=== PATIENT | male | born 1945 | race Caucasian/White ===

== ENCOUNTER 2016-03-14 09:52 | Inpatient (IN) | payer MEDICARE, MEDICAID ==
--- NOTE | 2016-03-14 11:11 | ED Physician Chart ---
Chief Complaint/HPI - Patient Information Date Seen:: 03/14/16 Time Seen:: 10:45 Chief Complaint:: sacral decubiti History of Present Illness:: patient has had sacral decubiti for more than two years. Discharged from here 3 weeks ago after 1 1/2 month admission for decubiti and had umbilical hernia repair. Allergies:: Allergies Allergy/AdvReac Type Severity Reaction Status Date / Time chocolate flavor Allergy Unknown Verified 03/14/16 10:19 nitroglycerin Allergy Unknown Verified 03/14/16 10:19 Vitals:: Vital Signs - 8 hr 03/14/16 10:13 Temp 98.1 F HR 88 RR 18 BP 138/85 O2 Sat % 95 Historian:: Patient Review:: Transfer documents Reviewed Review of Systems - Review of Systems General/Constitutional: No fever, No chills, Weakness Skin: Skin lesions Head: No headache Eyes: No loss of vision ENT: No earache Neck: No neck pain Cardio Vascular: No chest pain, No palpitations Pulmonary: No SOB, Cough GI: No nausea, No vomiting G/U: No dysuria Musculoskeletal: No bone or joint pain Endocrine: No polyuria, Polydipsia Psychiatric: No prior psych history Hematopoietic: No bruising Allergic/Immuno: No urticaria Neurological: No syncope, No headache Past Medical History - Past Medical History Past Medical History: CHF, CVA/TIA, PUD/GERD, Other (quadriplegia; anemia) Family History: Heart disease, HTN Social History: Non Smoker, No Alcohol Surgical History: PEG/GTube (hernia; trach), other Psychiatricy History: None Medication: Reviewed Family Medical History - Family Member Mother History Unknown: Yes Ethnicity: Unknown Living Status: Unknown Hx Family Cancer: (UNKNOWN) Hx Family Coronary Artery Disease: (UNKNOWN) Hx Family Congestive Heart Failure: (UNKNOWN) Hx Family Hypertension: (UNKNOWN) Hx Family Stroke: (UNKNOWN) Hx Family Diabetes: (UNKNOWN) Hx Family Seizures: (UNKNOWN) Hx Family Dementia: (UNKNOWN) Hx Family AIDS: (UNKNOWN) Hx Family COPD: (UNKNOWN) Hx Family Hepatitis: (UNKNOWN) Hx Family Psychiatric Problems: (UNKNOWN) Hx Family Tuberculosis: (UNKNOWN) Physical Exam - Physical Examination Other Gen/Cons comments:: chronically ill appearing Head: Atraumatic Eyes: Lids, conjuctiva normal, PERRL Other Skin comments:: stage 4 sacral decubitus ENMT: External ears, nose nl Other ENMT comments:: few teeth present Neck: No bruit Respiratory: Nl effort/Exclusion Other Respiratory comments:: harsh breath sounds Cardio Vascular: RRR, No murmur, gallop, rubs GI: No tenderness/rebounding/guarding, No organomegaly, Normal BS's Other Extremities comments:: quadriplegia; contracture right wrist and right hand Neuro/Psych: Alert/oriented Labs/Radiology/EKG Results - Lab Results Results: Laboratory Results - last 24 hr 03/14/16 03/14/16 11:30 11:30 WBC 13.1 H D RBC 5.35 Hgb 11.8 L D Hct 36.8 L D MCV 68.7 L MCH 22.1 L MCHC Differential 32.2 RDW 19.7 Plt Count 452 H D MPV 7.3 Band Neutrophils % 1 Neutrophils (Manual) 76 Lymphocytes 11 L Monocytes 8 Eosinophils 2 Basophils 2 Platelet Estimate INCREASED PLATELETS Platelet Morphology GIANT PLATELETS SEEN Microcytosis 3+ RBC Morph Micro Appear ABNORMAL Sodium 136 Potassium 3.7 Chloride 102 Carbon Dioxide 26.7 Anion Gap 11.0 BUN 27 H Creatinine 0.5 L Est GFR ( Amer) > 60.0 Est GFR (Non-Af Amer) > 60.0 BUN/Creatinine Ratio 54.0 Glucose 113 H Calcium 9.5 - Radiology Results Results: CXR: cardiomegaly and calcification of aortic arch; no change from 01/14/16 ED Septic Shock - . Is Septic Shock (SBP<90, OR Lactate>4 mmol\L) present?: No - <6hrs of presentation: Vital Signs: Vital Signs - 8 hr 03/14/16 10:13 Temp 98.1 F HR 88 RR 18 BP 138/85 O2 Sat % 95 Reassessment (Disposition) - Reassessment Reassessment Condition:: Unchanged - Diagnosis Diagnosis:: stage 4 sacral decubiti; leukocytosis; cardiomegaly - Patient Disposition Admitted to:: Med/Surg Spoke to:: James Quiroz Admitting Medical Physician:: James Quiroz Condition at Disposition:: Stable, Unchanged
--- NOTE | 2016-03-14 11:24 | Diagnostic Imaging Report ---
Portable chest x-ray HISTORY: Cough The heart is enlarged. Atherosclerotic vascular calcification seen in the aorta. There is pulmonary vascular redistribution consistent with an element of cardiac decompensation. No abby pulmonary edema. Surgical suture material noted over the mid chest. Severe deformity and arthritic changes noted about the left shoulder. IMPRESSION: 1. Cardiomegaly with atherosclerotic vascular changes and findings consistent with a degree of congestive heart failure without abby pulmonary edema. No other focal pulmonary processes 2. Surgical changes 3. Severe deformity and arthritic changes about the left shoulder
[2016-03-14 11:33] LABS: MEAN CORPUSCULAR HEMOGLOBIN 22.1 pg (27.0-31.0); MEAN CORPUSCULAR HGB CONC 32.2 pg (28.0-36.0); MEAN PLATELET VOLUME 7.3 fl; RED BLOOD COUNT 5.35 Mil/cmm (3.80-5.80); RED CELL DISTRIBUTION WIDTH 19.7 % (11.5-20.0)
[2016-03-14 11:35] LABS: HEMATOCRIT 36.8 % (39.0-49.0); HEMOGLOBIN 11.8 gm/dL (12.6-17.4); PLATELET COUNT 452 Th/cmm (150-400); WHITE BLOOD COUNT 13.1 Th/cmm (4.8-10.8)
[2016-03-14 11:54] LABS: BUN - UREA NITROGEN 27 mg/dL (7-25); CALCIUM SERUM 9.5 mg/dL (8.6-10.3); CARBON DIOXIDE 26.7 mEq/L (21.0-31.0); CHLORIDE 102 mEq/L (98-107); CREATININE - SERUM 0.5 mg/dL (0.7-1.3); GLUCOSE 113 mg/dL (70-105); POTASSIUM SERUM 3.7 mEq/L (3.5-5.1); SODIUM SERUM 136 mEq/L (136-145)
[2016-03-14 12:29] LABS: BAND NEUTROPHILE 1 % (0-10); BASOPHIL 2 % (0-3); EOSINOPHIL 2 % (0-5); NEUTROPHILS 76 % (40-80); TOTAL CELLS COUNTED 100
[2016-03-14 12:30] LABS: MICROCYTOSIS 3+; PLATELET ESTIMATE INCREASED PLATELETS (NORMAL); PLATELET MORPHOLOGY GIANT PLATELETS SEEN (NORMAL)
[2016-03-14 12:37] LABS: MEAN CELL VOLUME 68.7 fl (80-99)
[2016-03-14 13:13] LABS: URINE BILIRUBIN NEGATIVE (NEGATIVE); URINE BLOOD MODERATE (NEGATIVE); URINE COLOR YELLOW; URINE GLUCOSE (UA) NEGATIVE (NEGATIVE); URINE KETONE NEGATIVE (NEGATIVE); URINE PH 8.5; URINE PROTEIN 100 mg/dL (NEGATIVE); URINE UROBILINOGEN 0.2 E.U./dL (0.2 - 1.0)
[2016-03-14 13:20] LABS: URINE BACTERIA MANY /hpf (NONE SEEN); URINE EPITHELIAL CELLS RARE /lpf (FEW); URINE WBC 50-100 /hpf (0-5)
[2016-03-14] MEDS ORDERED: HYDROmorphone 2 mg/mL 1mL Vial ONE (13:47)
[2016-03-14] MEDS: HYDROmorphone 2 mg/mL 1mL Vial IVP PRN (13:52)
[2016-03-14] MEDS: Hydrocodone/APAP 10 mg/325 mg Tab PO PRN ×2 (16:31→20:37)
[2016-03-14] MEDS ORDERED: VTE Chemical Prophylaxis Screen/Admission MC PRN (16:45)
--- NOTE | 2016-03-14 21:14 | Admit Criteria Form ---
Admit Criteria Forms - Admit Criteria Diagnosis: WOUND COMPLICATIONS Clinical Indications for Inpatient Care (Place 'X' for any and all applicable criteria): Ongoing inpatient care may be indicated for wound complications with ANY ONE of the following (1) (15): [ ]I. Infection with ANY ONE of the following(32)(33): [ ]a) Temperature greater than 38.5 C (101.3 F) [ ]b) Evidence of tissue necrosis [ ]c) Erythema diameter expanding around wound despite treatment [ ]d) Mental status changes [ ]e) Dehydration [ ]f) Bacteremia [ ]g) Hemodynamic instability [ ]h) Suspected necrotizing fasciitis [ ]i) Rapidly spreading lesions [ ]j) High-risk location (eg, perineum, sternum, orbit) [ ]k) High-risk coexisting clinical condition as indicated by ANY ONE of the following: [ ]i) Poorly controlled diabetes [ ]ii) Cirrhosis [ ]iii) Renal failure [ ]iv) Neutropenia [ ] v) Asplenia [ ]vi) Immunosuppression (eg, AIDS, chronic corticosteroid use) [ ]viii) Other high-risk medical comorbidities [ ] II. Dehiscence requiring frequent monitoring or immediate treatment [ ] III. Hematoma with ANY ONE of the following: [ ]a) Hemodynamic instability or acute anemia due to rapid development of hematoma [ ]b) Neck hematoma causing airway compression [ ]c) Retroperitoneal hematoma [ ]d) Uncontrolled coagulopathy [ ]IV. Seroma with evidence of secondary infection and requirement for IV antibiotics [D](31) [ X]V. Pain that cannot be managed at lower level of care Extended stay beyond goal length of stay for primary condition may be needed until ALL of the following are present(1)(33)(34): [ ]a) Afebrile or fever resolving [ ]b) Hemodynamic stability [ ]c) Pain resolving [ ]d) Wound closed, continuity adequately restored, or wound manageable at lower level of care [ ]e) No drain needed or drain care manageable at lower level of care [ ]f) Wound hematoma or seroma resolving [ ]g) Antibiotics not needed or regimen manageable at lower level of care(38) [ ]h) Dressing care manageable at lower level of care [ ]i) Coagulopathy absent, resolved, or treatable at lower level of care [ ]j) Medical comorbidities resolved or treatable at lower level of care The original [facility] content created by [facility] has been revised. The portions of the content which have been revised are identified through the use of italic text or in bold, and [facility] has neither reviewed nor approved the modified material. All other unmodified content is copyright [facility]. Please see references footnoted in the original [facility] edition 2016 Admit Criteria Met?: Yes
[2016-03-14] MEDS: HYDROmorphone 1 mg/mL 1mL Syr IVP PRN (23:39)
[2016-03-15] MEDS: HYDROmorphone 2 mg/mL 1mL Vial IVP PRN ×4 (01:49→21:48)
[2016-03-15] MEDS: HYDROmorphone 1 mg/mL 1mL Syr IVP PRN ×3 (05:35→14:24)
--- NOTE | 2016-03-15 13:25 | General Progress Note ---
Subjective - Review of Systems Service Date: 03/15/16 Objective - Results Result Diagrams: 03/14/16 11:30 03/14/16 11:30 Recent Labs: Laboratory Last Values WBC 13.1 Th/cmm (4.8-10.8) H D 03/14/16 11:30 RBC 5.35 Mil/cmm (3.80-5.80) 03/14/16 11:30 Hgb 11.8 gm/dL (12.6-17.4) L D 03/14/16 11:30 Hct 36.8 % (39.0-49.0) L D 03/14/16 11:30 MCV 68.7 fl (80-99) L 03/14/16 11:30 MCH 22.1 pg (27.0-31.0) L 03/14/16 11:30 MCHC Differential 32.2 pg (28.0-36.0) 03/14/16 11:30 RDW 19.7 % (11.5-20.0) 03/14/16 11:30 Plt Count 452 Th/cmm (150-400) H D 03/14/16 11:30 MPV 7.3 fl 03/14/16 11:30 Band Neutrophils % 1 % (0-10) 03/14/16 11:30 Neutrophils (Manual) 76 % (40-80) 03/14/16 11:30 Lymphocytes 11 % (20-50) L 03/14/16 11:30 Monocytes 8 % (2-10) 03/14/16 11:30 Eosinophils 2 % (0-5) 03/14/16 11:30 Basophils 2 % (0-3) 03/14/16 11:30 Platelet Estimate INCREASED PLATELETS (NORMAL) 03/14/16 11:30 Platelet Morphology GIANT PLATELETS SEEN (NORMAL) 03/14/16 11:30 Microcytosis 3+ 03/14/16 11:30 RBC Morph Micro Appear ABNORMAL (NORMAL) 03/14/16 11:30 Sodium 136 mEq/L (136-145) 03/14/16 11:30 Potassium 3.7 mEq/L (3.5-5.1) 03/14/16 11:30 Chloride 102 mEq/L (98-107) 03/14/16 11:30 Carbon Dioxide 26.7 mEq/L (21.0-31.0) 03/14/16 11:30 Anion Gap 11.0 (7.0-16.0) 03/14/16 11:30 BUN 27 mg/dL (7-25) H 03/14/16 11:30 Creatinine 0.5 mg/dL (0.7-1.3) L 03/14/16 11:30 Est GFR ( Amer) > 60.0 ml/min 03/14/16 11:30 Est GFR (Non-Af Amer) > 60.0 ml/min 03/14/16 11:30 BUN/Creatinine Ratio 54.0 03/14/16 11:30 Glucose 113 mg/dL (70-105) H 03/14/16 11:30 Calcium 9.5 mg/dL (8.6-10.3) 03/14/16 11:30 Urine Source CATH 03/14/16 10:45 Urine Color YELLOW 03/14/16 10:45 Urine Clarity SL. CLOUDY (CLEAR) 03/14/16 10:45 Urine pH 8.5 03/14/16 10:45 Ur Specific [place] 1.015 (1.005-1.030) 03/14/16 10:45 Urine Protein 100 mg/dL (NEGATIVE) H 03/14/16 10:45 Urine Glucose (UA) NEGATIVE mg/dL (NEGATIVE) 03/14/16 10:45 Urine Ketones NEGATIVE mg/dL (NEGATIVE) 03/14/16 10:45 Urine Blood MODERATE (NEGATIVE) H 03/14/16 10:45 Urine Nitrate NEGATIVE (NEGATIVE) 03/14/16 10:45 Urine Bilirubin NEGATIVE (NEGATIVE) 03/14/16 10:45 Urine Urobilinogen 0.2 E.U./dL (0.2 - 1.0) 03/14/16 10:45 Ur Leukocyte Esterase MODERATE (NEGATIVE) H 03/14/16 10:45 Urine RBC 5-8 /hpf (0-5) 03/14/16 10:45 Urine WBC 50-100 /hpf (0-5) H 03/14/16 10:45 Ur Epithelial Cells RARE /lpf (FEW) 03/14/16 10:45 Urine Bacteria MANY /hpf (NONE SEEN) 03/14/16 10:45 - Physical Exam Vitals and I&O: Vital Signs Temp 98 F 03/15/16 08:00 Pulse 87 03/15/16 08:00 Resp 21 03/15/16 08:00 BP 155/85 03/15/16 08:00 Pulse Ox 92 03/15/16 08:00 Intake & Output 03/14/16 03/15/16 03/15/16 18:59 06:59 18:59 Intake Total 100 Output Total 700 Balance -600 Intake: Oral 100 Output: Urine 700 Other: # Bowel Movements 0 Active Medications: Current Medications Acetaminophen/Hydrocodone Bitart ([place] 10 Mg/325 Mg) 1 tab PO Q4H PRN PRN Reason: mild pain Stop: 05/13/16 15:35 Last Admin: 03/14/16 20:37 Dose: 1 tab Alprazolam (Xanax) 0.25 mg PO BID MARJORIE PRN Reason: Protocol Stop: 05/13/16 21:42 Last Admin: 03/15/16 11:13 Dose: Not Given Heparin Sodium (Porcine) (Heparin) 5,000 units SUBQ Q12HR MARJORIE Stop: 05/13/16 20:59 Last Admin: 03/15/16 11:13 Dose: Not Given Hydromorphone HCl (Dilaudid) 2 mg IVP Q4HR PRN PRN Reason: Wound Management Stop: 05/13/16 13:36 Last Admin: 03/15/16 12:55 Dose: 2 mg Hydromorphone HCl (Dilaudid) 1 mg IVP Q4HR PRN PRN Reason: moderate pain Stop: 05/13/16 15:32 Last Admin: 03/15/16 09:48 Dose: 1 mg Hydromorphone HCl (Dilaudid) 2 mg IVP Q4HR PRN PRN Reason: Severe Pain Stop: 05/13/16 15:33 Lorazepam (Ativan) 1 mg PO Q6HR PRN; Protocol PRN Reason: Anxiety Stop: 05/13/16 21:43 Miscellaneous (Vte Chemical Prophylaxis Screen/ Admission) 1 ea [facility] PRN PRN PRN Reason: PROTOCOL Stop: 05/13/16 16:44 General: Alert, Oriented x3 Neck: Supple Cardiovascular: Regular rate Lungs: Clear to auscultation Abdomen: Bowel sounds Psych/Mental Status: Mental status NL (sacral decubiti) - Procedures Procedures: Procedures Procedure Code Date BYPASS DESCENDING COLON TO CUTANEOUS, OPEN APPROACH [id number] 01/12/16 COLOSTOMY 93125 01/12/16 SRINATH SUBQ TISSUE 20 SQ CM/< 75247 01/12/16 EXCISION OF LEFT PELVIC BONE, OPEN APPROACH [id number] 01/12/16 EXCISION OF SACRUM, OPEN APPROACH [id number] 01/12/16 PRP I/BECCA INIT REDUC >5 YR 36876 01/12/16 REPAIR BILATERAL INGUINAL REGION, OPEN APPROACH [id number] 01/12/16 Assessment/Plan - Problem List Patient Problems: All Active Problems Anemia (Acute) D64.9 Cardiomegaly (Acute) I51.7 Constipation (Acute) K59.00 H/O: CVA (cerebrovascular accident) (Acute) Z86.73 History of CHF (congestive heart failure) (Acute) Z86.79 Non-healing sacral decubitus ulcer stage (Acute) PUD (peptic ulcer disease) (Acute) K27.9 UTI (urinary tract infection) (Acute) h/o coronary artery disease (Acute) - Plan Plan: vascular/surgical /id consult
[2016-03-15] MEDS: guaiFENesin 200 MG/10 ML UDC PO PRN (16:59)
[2016-03-15] MEDS: Hydrocodone/APAP 10 mg/325 mg Tab PO PRN (23:09)
[2016-03-16] MEDS: HYDROmorphone 1 mg/mL 1mL Syr IVP PRN ×3 (00:14→13:36)
[2016-03-16] MEDS: HYDROmorphone 2 mg/mL 1mL Vial IVP PRN ×4 (04:32→22:55)
[2016-03-16] MEDS: guaiFENesin 200 MG/10 ML UDC PO PRN ×2 (07:15→15:43)
[2016-03-16] MEDS: Venelex 60gm Tube TP SCH (09:38)
--- NOTE | 2016-03-16 10:31 | General Progress Note ---
Subjective - Review of Systems Service Date: 03/16/16 Subjective: c/o pain low back Objective - Results Result Diagrams: 03/14/16 11:30 03/14/16 11:30 Recent Labs: Laboratory Last Values WBC 13.1 Th/cmm (4.8-10.8) H D 03/14/16 11:30 RBC 5.35 Mil/cmm (3.80-5.80) 03/14/16 11:30 Hgb 11.8 gm/dL (12.6-17.4) L D 03/14/16 11:30 Hct 36.8 % (39.0-49.0) L D 03/14/16 11:30 MCV 68.7 fl (80-99) L 03/14/16 11:30 MCH 22.1 pg (27.0-31.0) L 03/14/16 11:30 MCHC Differential 32.2 pg (28.0-36.0) 03/14/16 11:30 RDW 19.7 % (11.5-20.0) 03/14/16 11:30 Plt Count 452 Th/cmm (150-400) H D 03/14/16 11:30 MPV 7.3 fl 03/14/16 11:30 Band Neutrophils % 1 % (0-10) 03/14/16 11:30 Neutrophils (Manual) 76 % (40-80) 03/14/16 11:30 Lymphocytes 11 % (20-50) L 03/14/16 11:30 Monocytes 8 % (2-10) 03/14/16 11:30 Eosinophils 2 % (0-5) 03/14/16 11:30 Basophils 2 % (0-3) 03/14/16 11:30 Platelet Estimate INCREASED PLATELETS (NORMAL) 03/14/16 11:30 Platelet Morphology GIANT PLATELETS SEEN (NORMAL) 03/14/16 11:30 Microcytosis 3+ 03/14/16 11:30 RBC Morph Micro Appear ABNORMAL (NORMAL) 03/14/16 11:30 Sodium 136 mEq/L (136-145) 03/14/16 11:30 Potassium 3.7 mEq/L (3.5-5.1) 03/14/16 11:30 Chloride 102 mEq/L (98-107) 03/14/16 11:30 Carbon Dioxide 26.7 mEq/L (21.0-31.0) 03/14/16 11:30 Anion Gap 11.0 (7.0-16.0) 03/14/16 11:30 BUN 27 mg/dL (7-25) H 03/14/16 11:30 Creatinine 0.5 mg/dL (0.7-1.3) L 03/14/16 11:30 Est GFR ( Amer) > 60.0 ml/min 03/14/16 11:30 Est GFR (Non-Af Amer) > 60.0 ml/min 03/14/16 11:30 BUN/Creatinine Ratio 54.0 03/14/16 11:30 Glucose 113 mg/dL (70-105) H 03/14/16 11:30 Calcium 9.5 mg/dL (8.6-10.3) 03/14/16 11:30 Urine Source CATH 03/14/16 10:45 Urine Color YELLOW 03/14/16 10:45 Urine Clarity SL. CLOUDY (CLEAR) 03/14/16 10:45 Urine pH 8.5 03/14/16 10:45 Ur Specific [place] 1.015 (1.005-1.030) 03/14/16 10:45 Urine Protein 100 mg/dL (NEGATIVE) H 03/14/16 10:45 Urine Glucose (UA) NEGATIVE mg/dL (NEGATIVE) 03/14/16 10:45 Urine Ketones NEGATIVE mg/dL (NEGATIVE) 03/14/16 10:45 Urine Blood MODERATE (NEGATIVE) H 03/14/16 10:45 Urine Nitrate NEGATIVE (NEGATIVE) 03/14/16 10:45 Urine Bilirubin NEGATIVE (NEGATIVE) 03/14/16 10:45 Urine Urobilinogen 0.2 E.U./dL (0.2 - 1.0) 03/14/16 10:45 Ur Leukocyte Esterase MODERATE (NEGATIVE) H 03/14/16 10:45 Urine RBC 5-8 /hpf (0-5) 03/14/16 10:45 Urine WBC 50-100 /hpf (0-5) H 03/14/16 10:45 Ur Epithelial Cells RARE /lpf (FEW) 03/14/16 10:45 Urine Bacteria MANY /hpf (NONE SEEN) 03/14/16 10:45 - Physical Exam Vitals and I&O: Vital Signs Temp 20 F 03/16/16 00:00 Pulse 96 03/16/16 00:00 Resp 20 03/16/16 00:00 BP 147/87 03/16/16 00:00 Pulse Ox 86 03/16/16 00:00 Intake & Output 03/15/16 03/16/16 03/16/16 18:59 06:59 18:59 Intake Total 450 200 Output Total 1600 Balance -1150 200 Intake: Oral 450 200 Output: Urine 1600 Other: # Voids 4 3 # Bowel Movements 1 Active Medications: Current Medications Acetaminophen/Hydrocodone Bitart ([place] 10 Mg/325 Mg) 1 tab PO Q4H PRN PRN Reason: mild pain Stop: 05/13/16 15:35 Last Admin: 03/15/16 23:09 Dose: 1 tab Alprazolam (Xanax) 0.25 mg PO BID MARJORIE PRN Reason: Protocol Stop: 05/13/16 21:42 Last Admin: 03/16/16 09:31 Dose: 0.25 mg Guaifenesin (Robitussin) 200 mg PO Q4HR PRN PRN Reason: Cough or Congestion Stop: 05/14/16 16:35 Last Admin: 03/16/16 07:15 Dose: 200 mg Heparin Sodium (Porcine) (Heparin) 5,000 units SUBQ Q12HR MARJORIE Stop: 05/13/16 20:59 Last Admin: 03/16/16 09:30 Dose: 5,000 units Hydromorphone HCl (Dilaudid) 2 mg IVP Q4HR PRN PRN Reason: Wound Management Stop: 05/13/16 13:36 Last Admin: 03/16/16 04:32 Dose: 2 mg Hydromorphone HCl (Dilaudid) 1 mg IVP Q4HR PRN PRN Reason: moderate pain Stop: 05/13/16 15:32 Last Admin: 03/16/16 09:31 Dose: 1 mg Hydromorphone HCl (Dilaudid) 2 mg IVP Q4HR PRN PRN Reason: Severe Pain Stop: 05/13/16 15:33 Lorazepam (Ativan) 1 mg PO Q6HR PRN; Protocol PRN Reason: Anxiety Stop: 05/13/16 21:43 Miscellaneous (Vte Chemical Prophylaxis Screen/ Admission) 1 ea [facility] PRN PRN PRN Reason: PROTOCOL Stop: 05/13/16 16:44 General: Moderate distress Neck: Supple Cardiovascular: Regular rate Lungs: Clear to auscultation Abdomen: Bowel sounds Psych/Mental Status: Mental status NL - Procedures Procedures: Procedures Procedure Code Date BYPASS DESCENDING COLON TO CUTANEOUS, OPEN APPROACH [id number] 01/12/16 COLOSTOMY 98459 01/12/16 SRINATH SUBQ TISSUE 20 SQ CM/< 74965 01/12/16 EXCISION OF LEFT PELVIC BONE, OPEN APPROACH [id number] 01/12/16 EXCISION OF SACRUM, OPEN APPROACH [id number] 01/12/16 PRP I/BECCA INIT REDUC >5 YR 95862 01/12/16 REPAIR BILATERAL INGUINAL REGION, OPEN APPROACH [id number] 01/12/16 Assessment/Plan - Problem List Patient Problems: All Active Problems Anemia (Acute) D64.9 Cardiomegaly (Acute) I51.7 Constipation (Acute) K59.00 H/O: CVA (cerebrovascular accident) (Acute) Z86.73 History of CHF (congestive heart failure) (Acute) Z86.79 Non-healing sacral decubitus ulcer stage (Acute) PUD (peptic ulcer disease) (Acute) K27.9 UTI (urinary tract infection) (Acute) h/o coronary artery disease (Acute) - Plan Plan: /dr akosua wright id consult
[2016-03-16] MEDS: Hydrocodone/APAP 10 mg/325 mg Tab PO PRN (10:50)
[2016-03-16] MEDS: Albuterol/Ipratropium Neb 3 ML AERS HHN PRN (22:19)
[2016-03-17] MEDS: Hydrocodone/APAP 10 mg/325 mg Tab PO PRN ×3 (00:31→20:57)
[2016-03-17] MEDS: HYDROmorphone 1 mg/mL 1mL Syr IVP PRN ×3 (03:13→13:54)
[2016-03-17] MEDS: Albuterol/Ipratropium Neb 3 ML AERS HHN PRN ×3 (03:37→22:02)
[2016-03-17] MEDS: HYDROmorphone 2 mg/mL 1mL Vial IVP PRN ×2 (11:01→21:57)
--- NOTE | 2016-03-17 12:04 | General Progress Note ---
Subjective - Review of Systems Service Date: 03/17/16 Subjective: c/o severe pain Objective - Results Result Diagrams: 03/14/16 11:30 03/14/16 11:30 Recent Labs: Laboratory Last Values WBC 13.1 Th/cmm (4.8-10.8) H D 03/14/16 11:30 RBC 5.35 Mil/cmm (3.80-5.80) 03/14/16 11:30 Hgb 11.8 gm/dL (12.6-17.4) L D 03/14/16 11:30 Hct 36.8 % (39.0-49.0) L D 03/14/16 11:30 MCV 68.7 fl (80-99) L 03/14/16 11:30 MCH 22.1 pg (27.0-31.0) L 03/14/16 11:30 MCHC Differential 32.2 pg (28.0-36.0) 03/14/16 11:30 RDW 19.7 % (11.5-20.0) 03/14/16 11:30 Plt Count 452 Th/cmm (150-400) H D 03/14/16 11:30 MPV 7.3 fl 03/14/16 11:30 Band Neutrophils % 1 % (0-10) 03/14/16 11:30 Neutrophils (Manual) 76 % (40-80) 03/14/16 11:30 Lymphocytes 11 % (20-50) L 03/14/16 11:30 Monocytes 8 % (2-10) 03/14/16 11:30 Eosinophils 2 % (0-5) 03/14/16 11:30 Basophils 2 % (0-3) 03/14/16 11:30 Platelet Estimate INCREASED PLATELETS (NORMAL) 03/14/16 11:30 Platelet Morphology GIANT PLATELETS SEEN (NORMAL) 03/14/16 11:30 Microcytosis 3+ 03/14/16 11:30 RBC Morph Micro Appear ABNORMAL (NORMAL) 03/14/16 11:30 Sodium 136 mEq/L (136-145) 03/14/16 11:30 Potassium 3.7 mEq/L (3.5-5.1) 03/14/16 11:30 Chloride 102 mEq/L (98-107) 03/14/16 11:30 Carbon Dioxide 26.7 mEq/L (21.0-31.0) 03/14/16 11:30 Anion Gap 11.0 (7.0-16.0) 03/14/16 11:30 BUN 27 mg/dL (7-25) H 03/14/16 11:30 Creatinine 0.5 mg/dL (0.7-1.3) L 03/14/16 11:30 Est GFR ( Amer) > 60.0 ml/min 03/14/16 11:30 Est GFR (Non-Af Amer) > 60.0 ml/min 03/14/16 11:30 BUN/Creatinine Ratio 54.0 03/14/16 11:30 Glucose 113 mg/dL (70-105) H 03/14/16 11:30 Calcium 9.5 mg/dL (8.6-10.3) 03/14/16 11:30 Urine Source CATH 03/14/16 10:45 Urine Color YELLOW 03/14/16 10:45 Urine Clarity SL. CLOUDY (CLEAR) 03/14/16 10:45 Urine pH 8.5 03/14/16 10:45 Ur Specific [place] 1.015 (1.005-1.030) 03/14/16 10:45 Urine Protein 100 mg/dL (NEGATIVE) H 03/14/16 10:45 Urine Glucose (UA) NEGATIVE mg/dL (NEGATIVE) 03/14/16 10:45 Urine Ketones NEGATIVE mg/dL (NEGATIVE) 03/14/16 10:45 Urine Blood MODERATE (NEGATIVE) H 03/14/16 10:45 Urine Nitrate NEGATIVE (NEGATIVE) 03/14/16 10:45 Urine Bilirubin NEGATIVE (NEGATIVE) 03/14/16 10:45 Urine Urobilinogen 0.2 E.U./dL (0.2 - 1.0) 03/14/16 10:45 Ur Leukocyte Esterase MODERATE (NEGATIVE) H 03/14/16 10:45 Urine RBC 5-8 /hpf (0-5) 03/14/16 10:45 Urine WBC 50-100 /hpf (0-5) H 03/14/16 10:45 Ur Epithelial Cells RARE /lpf (FEW) 03/14/16 10:45 Urine Bacteria MANY /hpf (NONE SEEN) 03/14/16 10:45 - Physical Exam Vitals and I&O: Vital Signs Temp 98.5 F 03/16/16 11:53 Pulse 87 03/17/16 08:00 Resp 20 03/17/16 08:00 BP 166/96 03/17/16 08:00 Pulse Ox 95 03/17/16 08:00 Intake & Output 03/16/16 03/17/16 03/17/16 18:59 06:59 18:59 Intake Total 1000 Output Total 1175 Balance -175 Intake: Oral 1000 Output: Urine 875 Stool 300 Other: Stool Characteristics Soft Soft Formed Brown Active Medications: Current Medications Acetaminophen/Hydrocodone Bitart ([place] 10 Mg/325 Mg) 1 tab PO Q4H PRN PRN Reason: mild pain Stop: 05/13/16 15:35 Last Admin: 03/17/16 00:31 Dose: 1 tab Albuterol/Ipratropium (Duoneb Neb) 3 ml HHN Q4HR PRN PRN Reason: Shortness of Breath or Wheeze Stop: 05/15/16 22:04 Last Admin: 03/17/16 06:49 Dose: 3 ml Alprazolam (Xanax) 0.25 mg PO BID MARJORIE PRN Reason: Protocol Stop: 05/13/16 21:42 Last Admin: 03/17/16 08:40 Dose: 0.25 mg Guaifenesin (Robitussin) 200 mg PO Q4HR PRN PRN Reason: Cough or Congestion Stop: 05/14/16 16:35 Last Admin: 03/16/16 15:43 Dose: 200 mg Heparin Sodium (Porcine) (Heparin) 5,000 units SUBQ Q12HR MARJORIE Stop: 05/13/16 20:59 Last Admin: 03/17/16 08:40 Dose: 5,000 units Hydromorphone HCl (Dilaudid) 2 mg IVP Q4HR PRN PRN Reason: Wound Management Stop: 05/13/16 13:36 Last Admin: 03/16/16 22:55 Dose: 2 mg Hydromorphone HCl (Dilaudid) 1 mg IVP Q4HR PRN PRN Reason: moderate pain Stop: 05/13/16 15:32 Last Admin: 03/17/16 08:42 Dose: 1 mg Hydromorphone HCl (Dilaudid) 2 mg IVP Q4HR PRN PRN Reason: Severe Pain Stop: 05/13/16 15:33 Last Admin: 03/17/16 11:01 Dose: 2 mg Lorazepam (Ativan) 1 mg PO Q6HR PRN; Protocol PRN Reason: Anxiety Stop: 05/13/16 21:43 Last Admin: 03/16/16 20:23 Dose: 1 mg Miscellaneous (Vte Chemical Prophylaxis Screen/ Admission) 1 ea [facility] PRN PRN PRN Reason: PROTOCOL Stop: 05/13/16 16:44 General: Oriented x3, Moderate distress Neck: Supple Cardiovascular: Regular rate, Normal S1, Normal S2 Lungs: Clear to auscultation, Normal air movement Psych/Mental Status: Mental status NL (osbaldo leg ulcers and wound vac) - Procedures Procedures: Procedures Procedure Code Date BYPASS DESCENDING COLON TO CUTANEOUS, OPEN APPROACH [id number] 01/12/16 COLOSTOMY 62175 01/12/16 SRINATH SUBQ TISSUE 20 SQ CM/< 93462 01/12/16 EXCISION OF LEFT PELVIC BONE, OPEN APPROACH [id number] 01/12/16 EXCISION OF SACRUM, OPEN APPROACH [id number] 01/12/16 PRP I/BECCA INIT REDUC >5 YR 71433 01/12/16 REPAIR BILATERAL INGUINAL REGION, OPEN APPROACH [id number] 01/12/16 Assessment/Plan - Problem List Patient Problems: All Active Problems Anemia (Acute) D64.9 Cardiomegaly (Acute) I51.7 Constipation (Acute) K59.00 H/O: CVA (cerebrovascular accident) (Acute) Z86.73 History of CHF (congestive heart failure) (Acute) Z86.79 Non-healing sacral decubitus ulcer stage (Acute) PUD (peptic ulcer disease) (Acute) K27.9 UTI (urinary tract infection) (Acute) h/o coronary artery disease (Acute) - Plan Plan: aj garcia
[2016-03-17] MEDS ORDERED: Maalox 30 mL Cup PO PRN (12:47)
[2016-03-17] MEDS ORDERED: Fleet Enema 135 mL RC PRN (12:47)
[2016-03-17] MEDS ORDERED: Polyvinyl Alcohol Ophth Soln 15 mL Bottle EACH EYE PRN (12:47)
[2016-03-17] MEDS ORDERED: MORPHINE 30 MG PO PRN (12:47)
[2016-03-17] MEDS ORDERED: Hydrocodone/APAP 10 mg/325 mg Tab PO PRN (12:47)
[2016-03-17] MEDS ORDERED: Lactulose 10 Gm/15 mL 30mL UDC PO PRN (12:47)
[2016-03-17] MEDS ORDERED: Non-Formulary Item 1 EA (Apixaban [Eliquis] 5 MG) PO SCH (13:00)
[2016-03-17] MEDS ORDERED: POLYETHYLENE GLYCOL 17 GM PO SCH (13:00)
[2016-03-17] MEDS ORDERED: [UNRECOGNIZED DRUG - OTHER] IV SCH (13:00)
[2016-03-17] MEDS ORDERED: VANCOMYCIN HCL IV SCH (13:00)
[2016-03-17] MEDS ORDERED: METRONIDAZOLE IV SCH (13:00)
[2016-03-17] MEDS ORDERED: POLYETHYLENE GLYCOL 3350 17 GM PACK PO ONE (17:00)
[2016-03-17] MEDS ORDERED: Non-Formulary Item 1 EA (Carvedilol [Coreg] 25 MG) PO SCH (17:00)
[2016-03-17] MEDS: Venelex 60gm Tube TP SCH (17:30)
[2016-03-17] MEDS: metroNIDAZOLE 500mg/NS 100mL 500 MG/100 ML BAG IV SCH (21:57)
[2016-03-18] MEDS: Hydrocodone/APAP 10 mg/325 mg Tab PO PRN (01:04)
[2016-03-18] MEDS: metroNIDAZOLE 500mg/NS 100mL 500 MG/100 ML BAG IV SCH (04:25)
[2016-03-18] MEDS: HYDROmorphone 2 mg/mL 1mL Vial IVP PRN ×3 (04:25→22:51)
[2016-03-18 07:29] LABS: HEMATOCRIT 34.7 % (39.0-49.0); HEMOGLOBIN 10.9 gm/dL (12.6-17.4); MEAN CELL VOLUME 69.6 fl (80-99); MEAN CORPUSCULAR HGB CONC 31.6 pg (28.0-36.0); MEAN PLATELET VOLUME 7.2 fl; PLATELET COUNT 484 Th/cmm (150-400); RED BLOOD COUNT 4.98 Mil/cmm (3.80-5.80); WHITE BLOOD COUNT 11.3 Th/cmm (4.8-10.8)
[2016-03-18 07:36] LABS: INR 1.16 (0.5-1.4); PROTHROMBIN TIME (TEST) 11.6 SECONDS (9.5-11.5)
[2016-03-18 07:43] LABS: ANION GAP 11.8 (7.0-16.0); BUN - UREA NITROGEN 31 mg/dL (7-25); BUN/CREATININE RATIO 77.5; CALCIUM SERUM 9.7 mg/dL (8.6-10.3); CARBON DIOXIDE 25.9 mEq/L (21.0-31.0); CHLORIDE 107 mEq/L (98-107); CREATININE - SERUM 0.4 mg/dL (0.7-1.3); GLUCOSE 134 mg/dL (70-105); POTASSIUM SERUM 3.7 mEq/L (3.5-5.1); SODIUM SERUM 141 mEq/L (136-145)
--- NOTE | 2016-03-18 07:58 | General Progress Note ---
Subjective - Review of Systems Subjective: c/o pain low back Objective - Results Result Diagrams: 03/18/16 06:25 03/18/16 06:25 Recent Labs: Laboratory Last Values WBC 11.3 Th/cmm (4.8-10.8) H 03/18/16 06:25 RBC 4.98 Mil/cmm (3.80-5.80) 03/18/16 06:25 Hgb 10.9 gm/dL (12.6-17.4) L 03/18/16 06:25 Hct 34.7 % (39.0-49.0) L 03/18/16 06:25 MCV 69.6 fl (80-99) L 03/18/16 06:25 MCH 22.0 pg (27.0-31.0) L 03/18/16 06:25 MCHC Differential 31.6 pg (28.0-36.0) 03/18/16 06:25 RDW 20.0 % (11.5-20.0) 03/18/16 06:25 Plt Count 484 Th/cmm (150-400) H 03/18/16 06:25 MPV 7.2 fl 03/18/16 06:25 Band Neutrophils % 1 % (0-10) 03/14/16 11:30 Neutrophils (Manual) 76 % (40-80) 03/14/16 11:30 Lymphocytes 11 % (20-50) L 03/14/16 11:30 Monocytes 8 % (2-10) 03/14/16 11:30 Eosinophils 2 % (0-5) 03/14/16 11:30 Basophils 2 % (0-3) 03/14/16 11:30 Platelet Estimate INCREASED PLATELETS (NORMAL) 03/14/16 11:30 Platelet Morphology GIANT PLATELETS SEEN (NORMAL) 03/14/16 11:30 Microcytosis 3+ 03/14/16 11:30 RBC Morph Micro Appear ABNORMAL (NORMAL) 03/14/16 11:30 Sodium 141 mEq/L (136-145) 03/18/16 06:25 Potassium 3.7 mEq/L (3.5-5.1) 03/18/16 06:25 Chloride 107 mEq/L (98-107) 03/18/16 06:25 Carbon Dioxide 25.9 mEq/L (21.0-31.0) 03/18/16 06:25 Anion Gap 11.8 (7.0-16.0) 03/18/16 06:25 BUN 31 mg/dL (7-25) H 03/18/16 06:25 Creatinine 0.4 mg/dL (0.7-1.3) L 03/18/16 06:25 Est GFR ( Amer) > 60.0 ml/min 03/18/16 06:25 Est GFR (Non-Af Amer) > 60.0 ml/min 03/18/16 06:25 BUN/Creatinine Ratio 77.5 03/18/16 06:25 Glucose 134 mg/dL (70-105) H 03/18/16 06:25 Calcium 9.7 mg/dL (8.6-10.3) 03/18/16 06:25 Urine Source CATH 03/14/16 10:45 Urine Color YELLOW 03/14/16 10:45 Urine Clarity SL. CLOUDY (CLEAR) 03/14/16 10:45 Urine pH 8.5 03/14/16 10:45 Ur Specific [place] 1.015 (1.005-1.030) 03/14/16 10:45 Urine Protein 100 mg/dL (NEGATIVE) H 03/14/16 10:45 Urine Glucose (UA) NEGATIVE mg/dL (NEGATIVE) 03/14/16 10:45 Urine Ketones NEGATIVE mg/dL (NEGATIVE) 03/14/16 10:45 Urine Blood MODERATE (NEGATIVE) H 03/14/16 10:45 Urine Nitrate NEGATIVE (NEGATIVE) 03/14/16 10:45 Urine Bilirubin NEGATIVE (NEGATIVE) 03/14/16 10:45 Urine Urobilinogen 0.2 E.U./dL (0.2 - 1.0) 03/14/16 10:45 Ur Leukocyte Esterase MODERATE (NEGATIVE) H 03/14/16 10:45 Urine RBC 5-8 /hpf (0-5) 03/14/16 10:45 Urine WBC 50-100 /hpf (0-5) H 03/14/16 10:45 Ur Epithelial Cells RARE /lpf (FEW) 03/14/16 10:45 Urine Bacteria MANY /hpf (NONE SEEN) 03/14/16 10:45 - Physical Exam Vitals and I&O: Vital Signs Temp 96.2 F 03/17/16 20:00 Pulse 73 03/18/16 01:04 Resp 18 03/17/16 22:12 BP 145/88 03/17/16 20:00 Pulse Ox 94 03/17/16 22:12 Intake & Output 03/17/16 03/18/16 03/18/16 18:59 06:59 18:59 Intake Total 300 100 Output Total 100 Balance 200 100 Intake: Intake, IV Amount 300 100 Vancomycin HCl 0.75 gm In 250 Sodium Chloride 0.9% 250 ml @ 165 mls/hr IV Q12HR @0300,1500 [facility] Rx#: [id number] cefTRIAXone 1 gm In 50 Dextrose 5% 50 ml @ 100 mls/hr IV Q24H [facility] Rx#: [id number] metroNIDAZOLE 500mg/NS 100 100mL 500 mg In 100 ml @ 100 mls/hr IV Q8HR [facility] Rx #:[id number] Output: Urine 100 Other: # Bowel Movements 1 Stool Characteristics Soft Formed Brown Active Medications: Current Medications Acetaminophen (Tylenol) 650 mg PO Q6HR PRN PRN Reason: Mild Pain or Fever >101 Stop: 05/16/16 12:46 Acetaminophen/Hydrocodone Bitart ([place] 10 Mg/325 Mg) 1 tab PO Q4H PRN PRN Reason: mild pain Stop: 05/13/16 15:35 Last Admin: 03/18/16 01:04 Dose: 1 tab Acetaminophen/Hydrocodone Bitart ([place] 10 Mg/325 Mg) 1 tab PO DAILY PRN PRN Reason: Pain (Moderate) Stop: 05/16/16 12:46 Al Hydrox/Mg Hydrox/Simethicone (Maalox) 20 ml PO DAILY PRN PRN Reason: GI DISTRESS Stop: 05/16/16 12:46 Albuterol/Ipratropium (Duoneb Neb) 3 ml HHN Q4HR PRN PRN Reason: Shortness of Breath or Wheeze Stop: 05/15/16 22:04 Last Admin: 03/17/16 22:02 Dose: 3 ml Alprazolam (Xanax) 0.25 mg PO BID MARJORIE PRN Reason: Protocol Stop: 05/13/16 21:42 Last Admin: 03/17/16 16:15 Dose: 0.25 mg Alprazolam (Xanax) 0.25 mg PO Q24HR PRN; Protocol PRN Reason: Anxiety Stop: 05/16/16 12:46 Amiodarone HCl (Cordarone) 200 mg PO DAILY [facility] Stop: 05/17/16 08:59 Amlodipine Besylate (Norvasc) 5 mg PO DAILY [facility] Stop: 05/17/16 08:59 Artificial Tears (Artificial Tears Ophth Soln) 1 drop EACH EYE BID PRN PRN Reason: DRY EYES Stop: 05/16/16 12:46 Ascorbic Acid (Vitamin C) 500 mg PO BID [facility] Stop: 05/16/16 16:59 Last Admin: 03/17/16 16:14 Dose: 500 mg Carvedilol (Coreg) 25 mg PO BID [facility] Stop: 05/16/16 16:59 Last Admin: 03/17/16 16:14 Dose: 25 mg Clonidine HCl (Catapres) 0.1 mg PO Q8HR PRN PRN Reason: IN SBP>150 Stop: 05/16/16 12:46 Last Admin: 03/18/16 01:04 Dose: 0.1 mg Diphenhydramine HCl (Benadryl) 25 mg PO Q8HR PRN PRN Reason: Itching Stop: 05/16/16 12:46 Docusate Sodium (Colace) 100 mg PO BID [facility] Stop: 05/16/16 16:59 Last Admin: 03/17/16 16:14 Dose: Not Given Doxazosin Mesylate (Cardura) 8 mg PO DAILY [facility] Stop: 05/17/16 08:59 Furosemide (Lasix) 40 mg IVP DAILY [facility] Stop: 05/17/16 08:59 Guaifenesin (Robitussin) 200 mg PO Q4HR PRN PRN Reason: Cough or Congestion Stop: 05/14/16 16:35 Last Admin: 03/16/16 15:43 Dose: 200 mg Heparin Sodium (Porcine) (Heparin) 5,000 units SUBQ Q12HR MARJORIE Stop: 05/13/16 20:59 Last Admin: 03/17/16 21:58 Dose: 5,000 units Hydromorphone HCl (Dilaudid) 2 mg IVP Q4HR PRN PRN Reason: Wound Management Stop: 05/13/16 13:36 Last Admin: 03/18/16 04:25 Dose: 2 mg Hydromorphone HCl (Dilaudid) 1 mg IVP Q4HR PRN PRN Reason: moderate pain Stop: 05/13/16 15:32 Last Admin: 03/17/16 13:54 Dose: 1 mg Hydromorphone HCl (Dilaudid) 2 mg IVP Q4HR PRN PRN Reason: Severe Pain Stop: 05/13/16 15:33 Last Admin: 03/17/16 11:01 Dose: 2 mg Ceftriaxone Sodium 1 gm/ (Dextrose) 50 mls @ 100 mls/hr IV Q24H MARJORIE Stop: 05/16/16 13:59 Last Infusion: 03/17/16 16:08 Dose: Infused Metronidazole (Flagyl) 500 mg in 100 mls @ 100 mls/hr IV Q8HR [facility]IE Stop: 05/16/16 20:59 Last Admin: 03/18/16 04:25 Dose: 100 mls/hr Daptomycin 320 mg/ Sodium (Chloride) 100 mls @ 100 mls/hr IV Q24H [facility] Stop: 05/17/16 08:59 Lactulose (Cephulac) 20 gm PO Q24HR PRN PRN Reason: Constipation Stop: 05/16/16 12:46 Levofloxacin (Levaquin) 250 mg PO DAILY [facility] Stop: 05/17/16 08:59 Lorazepam (Ativan) 1 mg PO Q6HR PRN; Protocol PRN Reason: Anxiety Stop: 05/13/16 21:43 Last Admin: 03/18/16 00:21 Dose: 1 mg Losartan Potassium (Cozaar) 50 mg PO DAILY [facility] Stop: 05/17/16 08:59 Miconazole Nitrate (Micatin 2%) appl TP BID [facility] Stop: 05/16/16 16:59 Miscellaneous (Vte Chemical Prophylaxis Screen/ Admission) 1 ea MC PRN PRN PRN Reason: PROTOCOL Stop: 05/13/16 16:44 Miscellaneous (Apixaban [Eliquis]) 5 mg PO Q2HR [facility] Stop: 05/16/16 12:59 Morphine Sulfate (Ms-Contin) 30 mg PO BID PRN PRN Reason: Pain (Severe) Stop: 05/16/16 13:31 Ondansetron HCl (Zofran Odt) 4 mg PO Q6HR PRN PRN Reason: Vomiting Stop: 05/16/16 12:46 Pantoprazole Sodium (Protonix) 40 mg PO QDAC [facility]JORIE Stop: 05/17/16 06:29 Potassium Chloride (Klor-Con) 20 meq PO DAILY [facility] Stop: 05/17/16 08:59 Sodium Phosphate (Fleet Enema) 133 ml RC DAILY PRN PRN Reason: Constipation Stop: 05/16/16 12:46 Zinc Sulfate (Zinc Sulfate) 220 mg PO DAILY [facility] Stop: 05/17/16 08:59 - Procedures Procedures: Procedures Procedure Code Date BYPASS DESCENDING COLON TO CUTANEOUS, OPEN APPROACH [id number] 01/12/16 COLOSTOMY 49963 01/12/16 SRINATH SUBQ TISSUE 20 SQ CM/< 78813 01/12/16 EXCISION OF LEFT PELVIC BONE, OPEN APPROACH [id number] 01/12/16 EXCISION OF SACRUM, OPEN APPROACH [id number] 01/12/16 PRP I/BECCA INIT REDUC >5 YR 80700 01/12/16 REPAIR BILATERAL INGUINAL REGION, OPEN APPROACH [id number] 01/12/16 Assessment/Plan - Problem List Patient Problems: All Active Problems Anemia (Acute) D64.9 Cardiomegaly (Acute) I51.7 Constipation (Acute) K59.00 H/O: CVA (cerebrovascular accident) (Acute) Z86.73 History of CHF (congestive heart failure) (Acute) Z86.79 Non-healing sacral decubitus ulcer stage (Acute) PUD (peptic ulcer disease) (Acute) K27.9 UTI (urinary tract infection) (Acute) h/o coronary artery disease (Acute) - Plan Plan: vascular/surgical /id consult
[2016-03-18] MEDS: Potassium Chloride 20 mEq ER Tab PO SCH (08:37)
[2016-03-18] MEDS: Multivitamin w/ Minerals Tab PO SCH (08:38)
[2016-03-18] MEDS ORDERED: DOXAZOSIN MESYLATE 8 MG PO SCH (09:00)
[2016-03-18] MEDS ORDERED: OMEPRAZOLE MAGNESIUM 40 MG PO SCH (09:00)
[2016-03-18] MEDS ORDERED: Non-Formulary Item 1 EA (Potassium Chloride [Potassium Chloride] 20 MEQ) PO SCH (09:00)
[2016-03-18 09:40] LABS: BAND NEUTROPHILE 3 % (0-10); EOSINOPHIL 1 % (0-5); NEUTROPHILS 86 % (40-80); TOTAL CELLS COUNTED 100
[2016-03-18 09:41] LABS: MICROCYTOSIS 3+
[2016-03-18 09:42] LABS: PLATELET ESTIMATE INCREASED PLATELETS (NORMAL); PLATELET MORPHOLOGY NORMAL (NORMAL)
--- NOTE | 2016-03-18 10:59 | Consultation ---
REFERRING PHYSICIAN: Dr. Quiroz. REASON FOR CONSULTATION: Infected decubitus ulcer in sacral area and UTI. HISTORY OF PRESENT ILLNESS: The patient is 70 years male with the past medical history of sacral decubitus ulcer, seems infected soiled by stool, paraplegia, generalized muscle weakness, peptic ulcer disease, GERD, peptic ulcer disease, CHF, coronary artery disease, brought in from nursing facility for infected sacral decubitus ulcer. On initial evaluation, the patient's temperature was 98.1 degree Fahrenheit and WBC count was 13,100. Urinalysis showed moderate leukocyte esterase, wbc 50-100 and many bacteria. Urine culture grew Providencia stuartii. Sacral wound culture grew multiple organism including VRE, MRSA. The patient was receiving vancomycin, Rocephin and Flagyl. ID consult was called for the antibiotic management. PAST MEDICAL HISTORY: Includes as mentioned above, bed ridden status, chronic pain syndrome, paraplegia, decubitus ulcer, peptic ulcer disease, GERD, CHF, CVA, coronary artery disease. ALLERGIES: The patient is allergic to chocolate and nitroglycerin. MEDICATIONS: As per medication reconciliation sheet. Antibiotic hidalgo, the patient is receiving Flagyl, Rocephin and vancomycin. PAST SURGICAL HISTORY: Includes tracheostomy. Now, the patient has tracheostoma. The patient also has colostomy. SOCIAL HISTORY: The patient lives at a nursing facility. No history of alcohol or smoking. FAMILY HISTORY: Noncontributory. REVIEW OF SYSTEMS: GENERAL: The patient denies any fever or chills. The patient had generalized weakness. HEENT: The patient denies any diplopia, photophobia, sore throat or congestion. RESPIRATORY: The patient feels congested in chest. Has cough, shortness of breath. CARDIOVASCULAR: The patient has no chest pain or palpitation. GASTROINTESTINAL: The patient has no nausea, no vomiting, no diarrhea, no constipation. GENITOURINARY: No dysuria. NEUROLOGIC: No headache, no dizziness. The patient is paraplegic. SKIN: The patient has sacral decubitus ulcer, multiple in number with irregular borders. PHYSICAL EXAMINATION: VITAL SIGNS: His temperature is 96.2, pulse 70, respiration is 18, blood pressure 145/88. GENERAL: The patient is comfortable, lying in the bed, not in acute distress. He complains of pain all over the body mainly in the sacral area. HEENT: Head is normocephalic, atraumatic. Oral cavity moist, pink tongue. Eyes, pallor is present, no icterus. NECK: Supple, no JVD. The patient has tracheostoma. CHEST: Bilateral vesicular breath sounds, crackles present. HEART: S1, S2 within normal limits. Regular rhythm. No murmur, no gallop. ABDOMEN: Soft, nontender, nondistended. Bowel sounds present. Colostomy present. EXTREMITIES: No cyanosis, no clubbing, no edema. NEUROLOGIC: Alert, awake, paraplegia. SKIN: The patient has sacral decubitus ulcers, multiple in number with some healing scars, some open with discharge. LABORATORY DATA: Current lab shows WBC count is 13,100, hemoglobin 11.5, hematocrit is 36.8, platelets are 452,000, neutrophils 76%. Sodium is 156, potassium 3.7, chloride 102, bicarbonate is 26.7, BUN is 27, creatinine is 0.5, glucose is 113. Urinalysis shows cloudy urine with a moderate blood, moderate leukocyte esterase, wbc of 50-100, many bacteria. Urine culture grew Providencia Stuartii and the wound culture grew Providencia stuartii, morganella morganii, MRSA and VRE. IMPRESSION: 1. Urinary tract infection. 2. Infected sacral wound. 3. Congestive heart failure, chest x-ray shows congestion.. 4. Chronic pain syndrome. 5. Cerebrovascular accident, transient ischemic attack. 6. Peptic ulcer disease. 7. Paraplegia. 8. Leukocytosis. RECOMMENDATIONS: We will change antibiotic to daptomycin, Rocephin and Flagyl. Check CBC, check BMP. The patient will go for sacral wound debridement. Thank you, Dr. Quiroz, for involving me taking care of this patient. JOB# [id number] FREDA
--- NOTE | 2016-03-18 21:44 | History & Physical ---
HISTORY OF PRESENT ILLNESS: The patient was admitted for increasing sacral decubiti and also bilateral leg ulcers. He is status post umbilical hernia repair. The patient is known to have history of hypertension, history of CHF and functional quadriparesis, history of CVA, history of peptic ulcer disease. PHYSICAL EXAMINATION: HEAD: Normal. ENT: Normal. NECK: Supple, nontender. LUNGS: Clear. CARDIOVASCULAR SYSTEM: S1, S2 heard. ABDOMEN: Soft. Bowel sounds are heard. EXTREMITIES: Sacral decubiti noted in bilateral legs and heel ____ some ulcers. LABORATORY DATA: His white count was 13.1. DIAGNOSES: 1. Sacral stage IV decubiti, infected, wound VAC bilateral leg ulcers. 2. Leukocytosis. 3. Cardiomegaly. 4. History of congestive heart failure. 5. History of cerebrovascular accident. 6. History of functional quadriparesis. 7. History of peptic ulcer disease. PLAN: The patient is being admitted and I will have Dr. Rodriguez and Dr. Anil Galvan, ID doctor, see the patient. The patient will be started on IV antibiotics ____. I will follow the patient. JOB# [id number]
[2016-03-19] MEDS: Venelex 60gm Tube TP SCH ×2 (00:46→10:20)
[2016-03-19] MEDS: Albuterol/Ipratropium Neb 3 ML AERS HHN PRN ×2 (02:12→22:08)
--- NOTE | 2016-03-19 02:51 | Consultation ---
The patient of Dr. Quiroz. HISTORY AND PHYSICAL: This 70-year-old male patient who was brought due to infected sacral decubitus ulcer and urinary tract infection. The patient has a stage 4 decubitus ulcer. The patient needs debridement. Cardiac clearance is requested. PAST MEDICAL HISTORY: Urinary tract infection, stage IV sacral decubitus ulcer, congestive heart failure, diastolic dysfunction, CVA with late effect, peripheral vascular disease, paraplegia, GERD, angina, and chronic constipation. FAMILY HISTORY: Unremarkable. SOCIAL HISTORY: No history of smoking or alcohol abuse. ALLERGIES: No known allergies. PHYSICAL EXAMINATION: VITAL SIGNS: Blood pressure 130/80, pulse 70, and respirations 20. HEAD: Normocephalic. No lumps or bumps. EYES: Pupils are equal and reactive to light. Fundi show AV nicking, sclerae white, and conjunctivae pink. NECK: Carotid 2+. Normal upstroke. JVD flat. Thyroid not palpable. Lymph nodes not palpable. LUNGS: Bilateral bronchovesicular breath sounds. Occasional wheeze and rhonchi. HEART: PMI in fifth intercostal space with lateral to midclavicular line. S1, S2, S3, S4, systolic murmur, grade 2/6 lower left sternal border without radiation. ABDOMEN: Soft. Liver and spleen not palpable. No organomegaly. Bowel sounds active. NEUROLOGIC: Paraplegia. EXTREMITIES: Peripheral pulses 1+. No pedal edema. The patient has stage IV sacral decubitus ulcer. CLINICAL IMPRESSION: Urinary tract infection; sacral decubitus ulcer with Methicillin-resistant Staphylococcus aureus, vancomycin-resistant Enterococcus; congestive heart failure; diastolic dysfunction; cerebrovascular accident with late effect; peripheral vascular disease; paraplegia; gastroesophageal reflux disease; angina; and chronic constipation. PLAN: The patient is cleared for surgical intervention. JOB# [id number]
[2016-03-19] MEDS: metroNIDAZOLE 500mg/NS 100mL 500 MG/100 ML BAG IV SCH ×2 (05:23→12:34)
[2016-03-19] MEDS: Pantoprazole 40 mg EC Tab PO SCH (06:06)
[2016-03-19] MEDS: HYDROmorphone 2 mg/mL 1mL Vial IVP PRN ×2 (06:22→12:33)
[2016-03-19] MEDS ORDERED: Bupivacaine 0.75% 10 mL Vial INJ ONE (07:15)
[2016-03-19] MEDS ORDERED: Midazolam 1mg/ml 2 ml vial IV ONE (07:56)
[2016-03-19] MEDS ORDERED: fentaNYL Citrate 100 mcg/2mL Vial ONE (07:56)
[2016-03-19] MEDS ORDERED: Meperidine 25 mg/mL 1mL Syr IVP PRN (08:05)
[2016-03-19] MEDS ORDERED: Lactated Ringer 1,000 ML IV SCH (08:15)
[2016-03-19] MEDS ORDERED: Meperidine 25 mg/mL 1mL Syr ONE (08:59)
[2016-03-19] MEDS: Potassium Chloride 20 mEq ER Tab PO SCH (10:22)
[2016-03-19] MEDS: Multivitamin w/ Minerals Tab PO SCH (10:22)
--- NOTE | 2016-03-19 11:01 | Operative Report ---
PREOPERATIVE DIAGNOSES: 1. Stage IV sacral decubitus ulcer, size 15 x 10 cm. 2. Stage IV left hip decubitus ulcer, size 8 x 6 cm. 3. Paraplegia. 4. Coronary artery disease. POSTOPERATIVE DIAGNOSES: 1. Stage IV sacral decubitus ulcer, size 15 x 10 cm. 2. Stage IV left hip decubitus ulcer, size 8 x 6 cm. 3. Paraplegia. 4. Coronary artery disease. OPERATION DONE: 1. Excisional debridement of sacral decubitus ulcer, size 10 x 15 cm. 2. Excisional debridement of left hip decubitus ulcer, size 8 x 6 cm. 3. Partial ostectomy of sacral bone. 4. Application of wound VAC. SURGEON: Jennifer Rizzo MD ANESTHESIA: Spinal. ANESTHESIOLOGIST: Andrew Galvan M.D. ESTIMATED BLOOD LOSS: 10 mL. INDICATIONS FOR SURGERY: The patient had excisional debridement and wound VAC application of same region on January 16, 2016. Colostomy is working well, but the ulcers have progressed with more necrotic tissues and need further debridement. DESCRIPTION OF PROCEDURE: The patient was given spinal anesthesia. The ulcers was prepped with Betadine and draped in appropriate manner. Excisional debridement was carried out to the ulcer in the sacral region and issues were excised with knife. Bleeders were electrocoagulated. The bone was prominent and projecting out and this was partially excised. Following satisfactory hemostasis, the left hip decubitus ulcer was likewise debrided. Wound VAC was applied utilizing silver sponge. The patient tolerated the procedure well. [facility]# [id number]
[2016-03-19] MEDS: Hydrocodone/APAP 10 mg/325 mg Tab PO PRN (14:29)
--- NOTE | 2016-03-19 16:12 | General Progress Note ---
Subjective - Review of Systems Subjective: c/o pain low back Objective - Results Result Diagrams: 03/18/16 06:25 03/18/16 06:25 Recent Labs: Laboratory Last Values WBC 11.3 Th/cmm (4.8-10.8) H 03/18/16 06:25 RBC 4.98 Mil/cmm (3.80-5.80) 03/18/16 06:25 Hgb 10.9 gm/dL (12.6-17.4) L 03/18/16 06:25 Hct 34.7 % (39.0-49.0) L 03/18/16 06:25 MCV 69.6 fl (80-99) L 03/18/16 06:25 MCH 22.0 pg (27.0-31.0) L 03/18/16 06:25 MCHC Differential 31.6 pg (28.0-36.0) 03/18/16 06:25 RDW 20.0 % (11.5-20.0) 03/18/16 06:25 Plt Count 484 Th/cmm (150-400) H 03/18/16 06:25 MPV 7.2 fl 03/18/16 06:25 Band Neutrophils % 3 % (0-10) 03/18/16 06:25 Neutrophils (Manual) 86 % (40-80) H 03/18/16 06:25 Lymphocytes 6 % (20-50) L 03/18/16 06:25 Monocytes 4 % (2-10) 03/18/16 06:25 Eosinophils 1 % (0-5) 03/18/16 06:25 Basophils 2 % (0-3) 03/14/16 11:30 Platelet Estimate INCREASED PLATELETS (NORMAL) 03/18/16 06:25 Platelet Morphology NORMAL (NORMAL) 03/18/16 06:25 Microcytosis 3+ 03/18/16 06:25 RBC Morph Micro Appear ABNORMAL (NORMAL) 03/18/16 06:25 PT 11.6 SECONDS (9.5-11.5) H 03/18/16 06:25 INR 1.16 (0.5-1.4) 03/18/16 06:25 Sodium 141 mEq/L (136-145) 03/18/16 06:25 Potassium 3.7 mEq/L (3.5-5.1) 03/18/16 06:25 Chloride 107 mEq/L (98-107) 03/18/16 06:25 Carbon Dioxide 25.9 mEq/L (21.0-31.0) 03/18/16 06:25 Anion Gap 11.8 (7.0-16.0) 03/18/16 06:25 BUN 31 mg/dL (7-25) H 03/18/16 06:25 Creatinine 0.4 mg/dL (0.7-1.3) L 03/18/16 06:25 Est GFR ( Amer) > 60.0 ml/min 03/18/16 06:25 Est GFR (Non-Af Amer) > 60.0 ml/min 03/18/16 06:25 BUN/Creatinine Ratio 77.5 03/18/16 06:25 Glucose 134 mg/dL (70-105) H 03/18/16 06:25 Calcium 9.7 mg/dL (8.6-10.3) 03/18/16 06:25 Urine Source CATH 03/14/16 10:45 Urine Color YELLOW 03/14/16 10:45 Urine Clarity SL. CLOUDY (CLEAR) 03/14/16 10:45 Urine pH 8.5 03/14/16 10:45 Ur Specific [place] 1.015 (1.005-1.030) 03/14/16 10:45 Urine Protein 100 mg/dL (NEGATIVE) H 03/14/16 10:45 Urine Glucose (UA) NEGATIVE mg/dL (NEGATIVE) 03/14/16 10:45 Urine Ketones NEGATIVE mg/dL (NEGATIVE) 03/14/16 10:45 Urine Blood MODERATE (NEGATIVE) H 03/14/16 10:45 Urine Nitrate NEGATIVE (NEGATIVE) 03/14/16 10:45 Urine Bilirubin NEGATIVE (NEGATIVE) 03/14/16 10:45 Urine Urobilinogen 0.2 E.U./dL (0.2 - 1.0) 03/14/16 10:45 Ur Leukocyte Esterase MODERATE (NEGATIVE) H 03/14/16 10:45 Urine RBC 5-8 /hpf (0-5) 03/14/16 10:45 Urine WBC 50-100 /hpf (0-5) H 03/14/16 10:45 Ur Epithelial Cells RARE /lpf (FEW) 03/14/16 10:45 Urine Bacteria MANY /hpf (NONE SEEN) 03/14/16 10:45 - Physical Exam Vitals and I&O: Vital Signs Temp 99.0 F 03/19/16 11:57 Pulse 56 03/19/16 16:00 Resp 20 03/19/16 16:00 BP 98/63 03/19/16 16:00 Pulse Ox 98 03/19/16 16:00 Intake & Output 03/18/16 03/19/16 03/19/16 18:59 06:59 18:59 Intake Total 250 300 200 Output Total 800 100 Balance -550 200 200 Intake: Intake, IV Amount 50 100 200 DAPTOmycin 320 mg In 200 Sodium Chloride 0.9% 100 ml @ 100 mls/hr IV Q24H [facility] Rx#:[id number] cefTRIAXone 1 gm In 50 Dextrose 5% 50 ml @ 100 mls/hr IV Q24H [facility] Rx#: [id number] metroNIDAZOLE 500mg/NS 100 100mL 500 mg In 100 ml @ 100 mls/hr IV Q8HR [facility] Rx #:[id number] Oral 200 200 Output: Urine 800 100 Other: # Bowel Movements 2 Stool Characteristics Soft Soft Brown Active Medications: Current Medications Acetaminophen (Tylenol) 650 mg PO Q6HR PRN PRN Reason: Mild Pain or Fever >101 Stop: 05/16/16 12:46 Acetaminophen/Hydrocodone Bitart ([place] 10 Mg/325 Mg) 1 tab PO Q4H PRN PRN Reason: mild pain Stop: 05/13/16 15:35 Last Admin: 03/19/16 14:29 Dose: 1 tab Acetaminophen/Hydrocodone Bitart ([place] 10 Mg/325 Mg) 1 tab PO DAILY PRN PRN Reason: Pain (Moderate) Stop: 05/16/16 12:46 Al Hydrox/Mg Hydrox/Simethicone (Maalox) 20 ml PO DAILY PRN PRN Reason: GI DISTRESS Stop: 05/16/16 12:46 Albuterol/Ipratropium (Duoneb Neb) 3 ml HHN Q4HR PRN PRN Reason: Shortness of Breath or Wheeze Stop: 05/15/16 22:04 Last Admin: 03/19/16 02:12 Dose: 3 ml Alprazolam (Xanax) 0.25 mg PO BID [facility] PRN Reason: Protocol Stop: 05/13/16 21:42 Last Admin: 03/19/16 10:17 Dose: Not Given Alprazolam (Xanax) 0.25 mg PO Q24HR PRN; Protocol PRN Reason: Anxiety Stop: 05/16/16 12:46 Amiodarone HCl (Cordarone) 200 mg PO DAILY [facility] Stop: 05/17/16 08:59 Last Admin: 03/19/16 10:18 Dose: 200 mg Amlodipine Besylate (Norvasc) 5 mg PO DAILY [facility] Stop: 05/17/16 08:59 Last Admin: 03/19/16 10:19 Dose: Not Given Artificial Tears (Artificial Tears Ophth Soln) 1 drop EACH EYE BID PRN PRN Reason: DRY EYES Stop: 05/16/16 12:46 Ascorbic Acid (Vitamin C) 500 mg PO BID [facility] Stop: 05/16/16 16:59 Last Admin: 03/19/16 10:18 Dose: 500 mg Carvedilol (Coreg) 25 mg PO BID [facility] Stop: 05/16/16 16:59 Last Admin: 03/19/16 10:15 Dose: 25 mg Clonidine HCl (Catapres) 0.1 mg PO Q8HR PRN PRN Reason: IN SBP>150 Stop: 05/16/16 12:46 Last Admin: 03/18/16 01:04 Dose: 0.1 mg Diphenhydramine HCl (Benadryl) 25 mg PO Q8HR PRN PRN Reason: Itching Stop: 05/16/16 12:46 Docusate Sodium (Colace) 100 mg PO BID [facility] Stop: 05/16/16 16:59 Last Admin: 03/19/16 10:18 Dose: Not Given Doxazosin Mesylate (Cardura) 8 mg PO DAILY [facility] Stop: 05/17/16 08:59 Last Admin: 03/19/16 10:21 Dose: Not Given Furosemide (Lasix) 40 mg IVP DAILY [facility] Stop: 05/17/16 08:59 Last Admin: 03/19/16 09:00 Dose: 40 mg Guaifenesin (Robitussin) 200 mg PO Q4HR PRN PRN Reason: Cough or Congestion Stop: 05/14/16 16:35 Last Admin: 03/16/16 15:43 Dose: 200 mg Heparin Sodium (Porcine) (Heparin) 5,000 units SUBQ Q12HR [facility] Stop: 05/13/16 20:59 Last Admin: 03/19/16 10:21 Dose: 5,000 units Hydromorphone HCl (Dilaudid) 1 mg IVP Q4HR PRN PRN Reason: moderate pain Stop: 05/13/16 15:32 Last Admin: 03/17/16 13:54 Dose: 1 mg Hydromorphone HCl (Dilaudid) 2 mg IVP Q4HR PRN PRN Reason: SEVERE PAIN/WOUND MANAGEMENT Stop: 05/18/16 15:11 Ceftriaxone Sodium 1 gm/ (Dextrose) 50 mls @ 100 mls/hr IV Q24H [facility] Stop: 05/16/16 13:59 Last Admin: 03/19/16 14:55 Dose: 100 mls/hr Metronidazole (Flagyl) 500 mg in 100 mls @ 100 mls/hr IV Q8HR [facility] Stop: 05/16/16 20:59 Last Admin: 03/19/16 12:34 Dose: 100 mls/hr Daptomycin 320 mg/ Sodium (Chloride) 100 mls @ 100 mls/hr IV Q24H [facility] Stop: 05/17/16 08:59 Last Infusion: 03/19/16 12:00 Dose: Infused Lactulose (Cephulac) 20 gm PO Q24HR PRN PRN Reason: Constipation Stop: 05/16/16 12:46 Levofloxacin (Levaquin) 250 mg PO DAILY [facility] Stop: 05/17/16 08:59 Last Admin: 03/19/16 10:15 Dose: 250 mg Lorazepam (Ativan) 1 mg PO Q6HR PRN; Protocol PRN Reason: Anxiety Stop: 05/13/16 21:43 Last Admin: 03/18/16 00:21 Dose: 1 mg Losartan Potassium (Cozaar) 50 mg PO DAILY [facility] Stop: 05/17/16 08:59 Last Admin: 03/19/16 10:21 Dose: 50 mg Miconazole Nitrate (Micatin 2%) appl TP BID [facility] Stop: 05/16/16 16:59 Miscellaneous (Vte Chemical Prophylaxis Screen/ Admission) 1 ea [facility] PRN PRN PRN Reason: PROTOCOL Stop: 05/13/16 16:44 Miscellaneous (Apixaban [Eliquis]) 5 mg PO Q2HR [facility] Stop: 05/16/16 12:59 Morphine Sulfate (Ms-Contin) 30 mg PO BID PRN PRN Reason: Pain (Severe) Stop: 05/16/16 13:31 Ondansetron HCl (Zofran Odt) 4 mg PO Q6HR PRN PRN Reason: Vomiting Stop: 05/16/16 12:46 Pantoprazole Sodium (Protonix) 40 mg PO QDAC [facility] Stop: 05/17/16 06:29 Last Admin: 03/19/16 06:06 Dose: Not Given Potassium Chloride (Klor-Con) 20 meq PO DAILY [facility] Stop: 05/17/16 08:59 Last Admin: 03/19/16 10:22 Dose: Not Given Sodium Phosphate (Fleet Enema) 133 ml RC DAILY PRN PRN Reason: Constipation Stop: 05/16/16 12:46 Zinc Sulfate (Zinc Sulfate) 220 mg PO DAILY [facility] Stop: 05/17/16 08:59 Last Admin: 03/19/16 10:23 Dose: 220 mg - Procedures Procedures: Procedures Procedure Code Date BYPASS DESCENDING COLON TO CUTANEOUS, OPEN APPROACH [id number] 01/12/16 COLOSTOMY 31315 01/12/16 SRINATH SUBQ TISSUE 20 SQ CM/< 13129 01/12/16 EXCISION OF LEFT PELVIC BONE, OPEN APPROACH [id number] 01/12/16 EXCISION OF SACRUM, OPEN APPROACH [id number] 01/12/16 PRP I/BECCA INIT REDUC >5 YR 17064 01/12/16 REPAIR BILATERAL INGUINAL REGION, OPEN APPROACH [id number] 01/12/16 Assessment/Plan - Problem List Patient Problems: All Active Problems Anemia (Acute) D64.9 Cardiomegaly (Acute) I51.7 Constipation (Acute) K59.00 H/O: CVA (cerebrovascular accident) (Acute) Z86.73 History of CHF (congestive heart failure) (Acute) Z86.79 Non-healing sacral decubitus ulcer stage (Acute) PUD (peptic ulcer disease) (Acute) K27.9 UTI (urinary tract infection) (Acute) h/o coronary artery disease (Acute) - Plan Plan: vascular/surgical /id consult
[2016-03-19] MEDS: HYDROmorphone 1 mg/mL 1mL Syr IVP PRN (17:53)
[2016-03-20] MEDS: Albuterol/Ipratropium Neb 3 ML AERS HHN PRN ×3 (01:28→22:06)
[2016-03-20] MEDS: metroNIDAZOLE 500mg/NS 100mL 500 MG/100 ML BAG IV SCH ×2 (02:40→14:15)
[2016-03-20] MEDS: HYDROmorphone 2 mg/mL 1mL Vial IVP PRN ×4 (02:47→17:18)
[2016-03-20] MEDS: Multivitamin w/ Minerals Tab PO SCH (09:12)
[2016-03-20] MEDS: Potassium Chloride 20 mEq ER Tab PO SCH (09:30)
[2016-03-20] MEDS: Venelex 60gm Tube TP SCH (09:32)
--- NOTE | 2016-03-20 09:35 | General Progress Note ---
Subjective - Review of Systems Subjective: c/o pain low back Objective - Results Result Diagrams: 03/18/16 06:25 03/18/16 06:25 Recent Labs: Laboratory Last Values WBC 11.3 Th/cmm (4.8-10.8) H 03/18/16 06:25 RBC 4.98 Mil/cmm (3.80-5.80) 03/18/16 06:25 Hgb 10.9 gm/dL (12.6-17.4) L 03/18/16 06:25 Hct 34.7 % (39.0-49.0) L 03/18/16 06:25 MCV 69.6 fl (80-99) L 03/18/16 06:25 MCH 22.0 pg (27.0-31.0) L 03/18/16 06:25 MCHC Differential 31.6 pg (28.0-36.0) 03/18/16 06:25 RDW 20.0 % (11.5-20.0) 03/18/16 06:25 Plt Count 484 Th/cmm (150-400) H 03/18/16 06:25 MPV 7.2 fl 03/18/16 06:25 Band Neutrophils % 3 % (0-10) 03/18/16 06:25 Neutrophils (Manual) 86 % (40-80) H 03/18/16 06:25 Lymphocytes 6 % (20-50) L 03/18/16 06:25 Monocytes 4 % (2-10) 03/18/16 06:25 Eosinophils 1 % (0-5) 03/18/16 06:25 Basophils 2 % (0-3) 03/14/16 11:30 Platelet Estimate INCREASED PLATELETS (NORMAL) 03/18/16 06:25 Platelet Morphology NORMAL (NORMAL) 03/18/16 06:25 Microcytosis 3+ 03/18/16 06:25 RBC Morph Micro Appear ABNORMAL (NORMAL) 03/18/16 06:25 PT 11.6 SECONDS (9.5-11.5) H 03/18/16 06:25 INR 1.16 (0.5-1.4) 03/18/16 06:25 Sodium 141 mEq/L (136-145) 03/18/16 06:25 Potassium 3.7 mEq/L (3.5-5.1) 03/18/16 06:25 Chloride 107 mEq/L (98-107) 03/18/16 06:25 Carbon Dioxide 25.9 mEq/L (21.0-31.0) 03/18/16 06:25 Anion Gap 11.8 (7.0-16.0) 03/18/16 06:25 BUN 31 mg/dL (7-25) H 03/18/16 06:25 Creatinine 0.4 mg/dL (0.7-1.3) L 03/18/16 06:25 Est GFR ( Amer) > 60.0 ml/min 03/18/16 06:25 Est GFR (Non-Af Amer) > 60.0 ml/min 03/18/16 06:25 BUN/Creatinine Ratio 77.5 03/18/16 06:25 Glucose 134 mg/dL (70-105) H 03/18/16 06:25 Calcium 9.7 mg/dL (8.6-10.3) 03/18/16 06:25 Urine Source CATH 03/14/16 10:45 Urine Color YELLOW 03/14/16 10:45 Urine Clarity SL. CLOUDY (CLEAR) 03/14/16 10:45 Urine pH 8.5 03/14/16 10:45 Ur Specific [place] 1.015 (1.005-1.030) 03/14/16 10:45 Urine Protein 100 mg/dL (NEGATIVE) H 03/14/16 10:45 Urine Glucose (UA) NEGATIVE mg/dL (NEGATIVE) 03/14/16 10:45 Urine Ketones NEGATIVE mg/dL (NEGATIVE) 03/14/16 10:45 Urine Blood MODERATE (NEGATIVE) H 03/14/16 10:45 Urine Nitrate NEGATIVE (NEGATIVE) 03/14/16 10:45 Urine Bilirubin NEGATIVE (NEGATIVE) 03/14/16 10:45 Urine Urobilinogen 0.2 E.U./dL (0.2 - 1.0) 03/14/16 10:45 Ur Leukocyte Esterase MODERATE (NEGATIVE) H 03/14/16 10:45 Urine RBC 5-8 /hpf (0-5) 03/14/16 10:45 Urine WBC 50-100 /hpf (0-5) H 03/14/16 10:45 Ur Epithelial Cells RARE /lpf (FEW) 03/14/16 10:45 Urine Bacteria MANY /hpf (NONE SEEN) 03/14/16 10:45 - Physical Exam Vitals and I&O: Vital Signs Temp 99.0 F 03/19/16 11:57 Pulse 79 03/20/16 09:11 Resp 20 03/20/16 06:58 BP 141/84 03/20/16 09:11 Pulse Ox 98 03/20/16 06:58 Intake & Output 03/19/16 03/20/16 03/20/16 18:59 06:59 18:59 Intake Total 350 150 Output Total 201 Balance 350 -51 Intake: Intake, IV Amount 350 DAPTOmycin 320 mg In 200 Sodium Chloride 0.9% 100 ml @ 100 mls/hr IV Q24H [facility] Rx#:[id number] cefTRIAXone 1 gm In 50 Dextrose 5% 50 ml @ 100 mls/hr IV Q24H [facility] Rx#: [id number] metroNIDAZOLE 500mg/NS 100 100mL 500 mg In 100 ml @ 100 mls/hr IV Q8HR [facility] Rx #:[id number] Oral 150 Output: Urine 200 Stool 1 Other: # Voids 4 Stool Characteristics Soft Brown Active Medications: Current Medications Acetaminophen (Tylenol) 650 mg PO Q6HR PRN PRN Reason: Mild Pain or Fever >101 Stop: 05/16/16 12:46 Acetaminophen/Hydrocodone Bitart ([place] 10 Mg/325 Mg) 1 tab PO Q4H PRN PRN Reason: mild pain Stop: 05/13/16 15:35 Last Admin: 03/19/16 14:29 Dose: 1 tab Acetaminophen/Hydrocodone Bitart ([place] 10 Mg/325 Mg) 1 tab PO DAILY PRN PRN Reason: Pain (Moderate) Stop: 05/16/16 12:46 Al Hydrox/Mg Hydrox/Simethicone (Maalox) 20 ml PO DAILY PRN PRN Reason: GI DISTRESS Stop: 05/16/16 12:46 Albuterol/Ipratropium (Duoneb Neb) 3 ml HHN Q4HR PRN PRN Reason: Shortness of Breath or Wheeze Stop: 05/15/16 22:04 Last Admin: 03/20/16 06:57 Dose: 3 ml Alprazolam (Xanax) 0.25 mg PO BID [facility] PRN Reason: Protocol Stop: 05/13/16 21:42 Last Admin: 03/20/16 09:10 Dose: 0.25 mg Alprazolam (Xanax) 0.25 mg PO Q24HR PRN; Protocol PRN Reason: Anxiety Stop: 05/16/16 12:46 Amiodarone HCl (Cordarone) 200 mg PO DAILY [facility] Stop: 05/17/16 08:59 Last Admin: 03/20/16 09:10 Dose: 200 mg Amlodipine Besylate (Norvasc) 5 mg PO DAILY [facility] Stop: 05/17/16 08:59 Last Admin: 03/20/16 08:41 Dose: 5 mg Artificial Tears (Artificial Tears Ophth Soln) 1 drop EACH EYE BID PRN PRN Reason: DRY EYES Stop: 05/16/16 12:46 Ascorbic Acid (Vitamin C) 500 mg PO BID [facility] Stop: 05/16/16 16:59 Last Admin: 03/20/16 09:10 Dose: 500 mg Carvedilol (Coreg) 25 mg PO BID [facility] Stop: 05/16/16 16:59 Last Admin: 03/20/16 09:08 Dose: 25 mg Clonidine HCl (Catapres) 0.1 mg PO Q8HR PRN PRN Reason: IN SBP>150 Stop: 05/16/16 12:46 Last Admin: 03/18/16 01:04 Dose: 0.1 mg Diphenhydramine HCl (Benadryl) 25 mg PO Q8HR PRN PRN Reason: Itching Stop: 05/16/16 12:46 Docusate Sodium (Colace) 100 mg PO BID [facility] Stop: 05/16/16 16:59 Last Admin: 03/20/16 09:32 Dose: Not Given Doxazosin Mesylate (Cardura) 8 mg PO DAILY [facility] Stop: 05/17/16 08:59 Last Admin: 03/20/16 09:11 Dose: 8 mg Furosemide (Lasix) 40 mg IVP DAILY [facility] Stop: 05/17/16 08:59 Last Admin: 03/20/16 09:10 Dose: 40 mg Guaifenesin (Robitussin) 200 mg PO Q4HR PRN PRN Reason: Cough or Congestion Stop: 05/14/16 16:35 Last Admin: 03/16/16 15:43 Dose: 200 mg Heparin Sodium (Porcine) (Heparin) 5,000 units SUBQ Q12HR [facility] Stop: 05/13/16 20:59 Last Admin: 03/20/16 09:11 Dose: 5,000 units Hydromorphone HCl (Dilaudid) 1 mg IVP Q4HR PRN PRN Reason: moderate pain Stop: 05/13/16 15:32 Last Admin: 03/19/16 17:53 Dose: 1 mg Hydromorphone HCl (Dilaudid) 2 mg IVP Q4HR PRN PRN Reason: SEVERE PAIN/WOUND MANAGEMENT Stop: 05/18/16 15:11 Last Admin: 03/20/16 02:47 Dose: 2 mg Ceftriaxone Sodium 1 gm/ (Dextrose) 50 mls @ 100 mls/hr IV Q24H [facility] Stop: 05/16/16 13:59 Last Infusion: 03/19/16 15:25 Dose: Infused Metronidazole (Flagyl) 500 mg in 100 mls @ 100 mls/hr IV Q8HR [facility] Stop: 05/16/16 20:59 Last Admin: 03/20/16 02:40 Dose: 100 mls/hr Daptomycin 320 mg/ Sodium (Chloride) 100 mls @ 100 mls/hr IV Q24H [facility] Stop: 05/17/16 08:59 Last Infusion: 03/19/16 12:00 Dose: Infused Lactulose (Cephulac) 20 gm PO Q24HR PRN PRN Reason: Constipation Stop: 05/16/16 12:46 Levofloxacin (Levaquin) 250 mg PO DAILY [facility] Stop: 05/17/16 08:59 Last Admin: 03/20/16 09:09 Dose: 250 mg Lorazepam (Ativan) 1 mg PO Q6HR PRN; Protocol PRN Reason: Anxiety Stop: 05/13/16 21:43 Last Admin: 03/18/16 00:21 Dose: 1 mg Losartan Potassium (Cozaar) 50 mg PO DAILY [facility] Stop: 05/17/16 08:59 Last Admin: 03/20/16 09:11 Dose: 50 mg Miconazole Nitrate (Micatin 2%) appl TP BID [facility] Stop: 05/16/16 16:59 Miscellaneous (Vte Chemical Prophylaxis Screen/ Admission) 1 ea [facility] PRN PRN PRN Reason: PROTOCOL Stop: 05/13/16 16:44 Miscellaneous (Apixaban [Eliquis]) 5 mg PO Q2HR [facility] Stop: 05/16/16 12:59 Morphine Sulfate (Ms-Contin) 30 mg PO BID PRN PRN Reason: Pain (Severe) Stop: 05/16/16 13:31 Ondansetron HCl (Zofran Odt) 4 mg PO Q6HR PRN PRN Reason: Vomiting Stop: 05/16/16 12:46 Pantoprazole Sodium (Protonix) 40 mg PO QDAC [facility] Stop: 05/17/16 06:29 Last Admin: 03/19/16 06:06 Dose: Not Given Potassium Chloride (Klor-Con) 20 meq PO DAILY [facility] Stop: 05/17/16 08:59 Last Admin: 03/20/16 09:30 Dose: 20 meq Sodium Phosphate (Fleet Enema) 133 ml RC DAILY PRN PRN Reason: Constipation Stop: 05/16/16 12:46 Zinc Sulfate (Zinc Sulfate) 220 mg PO DAILY [facility] Stop: 05/17/16 08:59 Last Admin: 03/20/16 09:31 Dose: 220 mg - Procedures Procedures: Procedures Procedure Code Date BYPASS DESCENDING COLON TO CUTANEOUS, OPEN APPROACH [id number] 01/12/16 COLOSTOMY 14467 01/12/16 SRINATH SUBQ TISSUE 20 SQ CM/< 98031 01/12/16 EXCISION OF LEFT ACETABULUM, OPEN APPROACH [id number] 03/14/16 EXCISION OF LEFT PELVIC BONE, OPEN APPROACH [id number] 01/12/16 EXCISION OF SACRUM, OPEN APPROACH [id number] 03/14/16 PRP I/BECCA INIT REDUC >5 YR 71140 01/12/16 REMOVAL OF PRESSURE SORE 01431 03/14/16 REPAIR BILATERAL INGUINAL REGION, OPEN APPROACH [id number] 01/12/16 Assessment/Plan - Problem List Patient Problems: All Active Problems Anemia (Acute) D64.9 Cardiomegaly (Acute) I51.7 Constipation (Acute) K59.00 H/O: CVA (cerebrovascular accident) (Acute) Z86.73 History of CHF (congestive heart failure) (Acute) Z86.79 Non-healing sacral decubitus ulcer stage (Acute) PUD (peptic ulcer disease) (Acute) K27.9 UTI (urinary tract infection) (Acute) h/o coronary artery disease (Acute) - Plan Plan: vascular/surgical /id consult
[2016-03-20] MEDS: Hydrocodone/APAP 10 mg/325 mg Tab PO PRN ×2 (11:09→15:58)
--- NOTE | 2016-03-20 11:17 | Diagnostic Imaging Report ---
Nuclear medicine triple phase bone scan of the pelvis History: Pain rule out osteomyelitis Comparison: None Technique/procedure: 22.9 mCi of technetium labeled MDP was administered intravenously and flow, blood flow, and 6 hour delayed images of the pelvis were obtained. Findings: Exam is limited due to patient uncooperative for the procedure. Flow images demonstrate no significant increased focal uptake. Blood pool images are also limited including limited visualization of the iliac crests. There is mild increased uptake along the bilateral iliac crest regions rightward, greater than left. Blood pool images demonstrate mild increased uptake of the bilateral iliac crests, right greater than left. IMPRESSION: Limited exam as patient was uncooperative for the procedure. Nonspecific uptake of the bilateral iliac crest regions are noted. Osteomyelitis in these regions is considered less likely. If clinically indicated correlative follow up exams including x-rays and/or MRI may also be obtained for further assessment.
[2016-03-20] MEDS: HYDROmorphone 1 mg/mL 1mL Syr IVP PRN (21:33)
[2016-03-21] MEDS: HYDROmorphone 1 mg/mL 1mL Syr IVP PRN ×2 (02:00→08:46)
[2016-03-21] MEDS: Hydrocodone/APAP 10 mg/325 mg Tab PO PRN ×3 (03:46→15:43)
[2016-03-21] MEDS: Pantoprazole 40 mg EC Tab PO SCH (07:00)
[2016-03-21] MEDS: Albuterol/Ipratropium Neb 3 ML AERS HHN PRN (07:08)
[2016-03-21] MEDS: Multivitamin w/ Minerals Tab PO SCH (08:50)
--- NOTE | 2016-03-21 09:03 | General Progress Note ---
Subjective - Review of Systems Subjective: c/o pain low back Objective - Results Result Diagrams: 03/18/16 06:25 03/18/16 06:25 Recent Labs: Laboratory Last Values WBC 11.3 Th/cmm (4.8-10.8) H 03/18/16 06:25 RBC 4.98 Mil/cmm (3.80-5.80) 03/18/16 06:25 Hgb 10.9 gm/dL (12.6-17.4) L 03/18/16 06:25 Hct 34.7 % (39.0-49.0) L 03/18/16 06:25 MCV 69.6 fl (80-99) L 03/18/16 06:25 MCH 22.0 pg (27.0-31.0) L 03/18/16 06:25 MCHC Differential 31.6 pg (28.0-36.0) 03/18/16 06:25 RDW 20.0 % (11.5-20.0) 03/18/16 06:25 Plt Count 484 Th/cmm (150-400) H 03/18/16 06:25 MPV 7.2 fl 03/18/16 06:25 Band Neutrophils % 3 % (0-10) 03/18/16 06:25 Neutrophils (Manual) 86 % (40-80) H 03/18/16 06:25 Lymphocytes 6 % (20-50) L 03/18/16 06:25 Monocytes 4 % (2-10) 03/18/16 06:25 Eosinophils 1 % (0-5) 03/18/16 06:25 Basophils 2 % (0-3) 03/14/16 11:30 Platelet Estimate INCREASED PLATELETS (NORMAL) 03/18/16 06:25 Platelet Morphology NORMAL (NORMAL) 03/18/16 06:25 Microcytosis 3+ 03/18/16 06:25 RBC Morph Micro Appear ABNORMAL (NORMAL) 03/18/16 06:25 PT 11.6 SECONDS (9.5-11.5) H 03/18/16 06:25 INR 1.16 (0.5-1.4) 03/18/16 06:25 Sodium 141 mEq/L (136-145) 03/18/16 06:25 Potassium 3.7 mEq/L (3.5-5.1) 03/18/16 06:25 Chloride 107 mEq/L (98-107) 03/18/16 06:25 Carbon Dioxide 25.9 mEq/L (21.0-31.0) 03/18/16 06:25 Anion Gap 11.8 (7.0-16.0) 03/18/16 06:25 BUN 31 mg/dL (7-25) H 03/18/16 06:25 Creatinine 0.4 mg/dL (0.7-1.3) L 03/18/16 06:25 Est GFR ( Amer) > 60.0 ml/min 03/18/16 06:25 Est GFR (Non-Af Amer) > 60.0 ml/min 03/18/16 06:25 BUN/Creatinine Ratio 77.5 03/18/16 06:25 Glucose 134 mg/dL (70-105) H 03/18/16 06:25 Calcium 9.7 mg/dL (8.6-10.3) 03/18/16 06:25 Urine Source CATH 03/14/16 10:45 Urine Color YELLOW 03/14/16 10:45 Urine Clarity SL. CLOUDY (CLEAR) 03/14/16 10:45 Urine pH 8.5 03/14/16 10:45 Ur Specific [place] 1.015 (1.005-1.030) 03/14/16 10:45 Urine Protein 100 mg/dL (NEGATIVE) H 03/14/16 10:45 Urine Glucose (UA) NEGATIVE mg/dL (NEGATIVE) 03/14/16 10:45 Urine Ketones NEGATIVE mg/dL (NEGATIVE) 03/14/16 10:45 Urine Blood MODERATE (NEGATIVE) H 03/14/16 10:45 Urine Nitrate NEGATIVE (NEGATIVE) 03/14/16 10:45 Urine Bilirubin NEGATIVE (NEGATIVE) 03/14/16 10:45 Urine Urobilinogen 0.2 E.U./dL (0.2 - 1.0) 03/14/16 10:45 Ur Leukocyte Esterase MODERATE (NEGATIVE) H 03/14/16 10:45 Urine RBC 5-8 /hpf (0-5) 03/14/16 10:45 Urine WBC 50-100 /hpf (0-5) H 03/14/16 10:45 Ur Epithelial Cells RARE /lpf (FEW) 03/14/16 10:45 Urine Bacteria MANY /hpf (NONE SEEN) 03/14/16 10:45 - Physical Exam Vitals and I&O: Vital Signs Temp 98.7 F 03/20/16 16:00 Pulse 61 03/21/16 08:51 Resp 20 03/21/16 07:08 BP 124/78 03/21/16 08:51 Pulse Ox 97 03/21/16 07:08 Intake & Output 03/20/16 03/21/16 03/21/16 18:59 06:59 18:59 Intake Total 1800 720 Output Total 2140 720 Balance -340 0 Intake: Intake, IV Amount 250 DAPTOmycin 320 mg In 100 Sodium Chloride 0.9% 100 ml @ 100 mls/hr IV Q24H [facility] Rx#:[id number] cefTRIAXone 1 gm In 50 Dextrose 5% 50 ml @ 100 mls/hr IV Q24H [facility] Rx#: [id number] metroNIDAZOLE 500mg/NS 100 100mL 500 mg In 100 ml @ 100 mls/hr IV Q8HR [facility] Rx #:[id number] Oral 1550 720 Output: Urine 2050 720 Stool 0 Other 90 Active Medications: Current Medications Acetaminophen (Tylenol) 650 mg PO Q6HR PRN PRN Reason: Mild Pain or Fever >101 Stop: 05/16/16 12:46 Acetaminophen/Hydrocodone Bitart ([place] 10 Mg/325 Mg) 1 tab PO Q4H PRN PRN Reason: mild pain Stop: 05/13/16 15:35 Last Admin: 03/21/16 03:46 Dose: 1 tab Acetaminophen/Hydrocodone Bitart ([place] 10 Mg/325 Mg) 1 tab PO DAILY PRN PRN Reason: Pain (Moderate) Stop: 05/16/16 12:46 Al Hydrox/Mg Hydrox/Simethicone (Maalox) 20 ml PO DAILY PRN PRN Reason: GI DISTRESS Stop: 05/16/16 12:46 Albuterol/Ipratropium (Duoneb Neb) 3 ml HHN Q4HR PRN PRN Reason: Shortness of Breath or Wheeze Stop: 05/15/16 22:04 Last Admin: 03/21/16 07:08 Dose: 3 ml Alprazolam (Xanax) 0.25 mg PO BID [facility] PRN Reason: Protocol Stop: 05/13/16 21:42 Last Admin: 03/21/16 08:50 Dose: 0.25 mg Alprazolam (Xanax) 0.25 mg PO Q24HR PRN; Protocol PRN Reason: Anxiety Stop: 05/16/16 12:46 Amiodarone HCl (Cordarone) 200 mg PO DAILY [facility] Stop: 05/17/16 08:59 Last Admin: 03/21/16 08:50 Dose: 200 mg Amlodipine Besylate (Norvasc) 5 mg PO DAILY [facility] Stop: 05/17/16 08:59 Last Admin: 03/20/16 08:41 Dose: 5 mg Artificial Tears (Artificial Tears Ophth Soln) 1 drop EACH EYE BID PRN PRN Reason: DRY EYES Stop: 05/16/16 12:46 Ascorbic Acid (Vitamin C) 500 mg PO BID [facility] Stop: 05/16/16 16:59 Last Admin: 03/21/16 08:51 Dose: 500 mg Carvedilol (Coreg) 25 mg PO BID [facility] Stop: 05/16/16 16:59 Last Admin: 03/20/16 17:23 Dose: Not Given Clonidine HCl (Catapres) 0.1 mg PO Q8HR PRN PRN Reason: IN SBP>150 Stop: 05/16/16 12:46 Last Admin: 03/18/16 01:04 Dose: 0.1 mg Diphenhydramine HCl (Benadryl) 25 mg PO Q8HR PRN PRN Reason: Itching Stop: 05/16/16 12:46 Docusate Sodium (Colace) 100 mg PO BID [facility] Stop: 05/16/16 16:59 Last Admin: 03/20/16 17:22 Dose: Not Given Doxazosin Mesylate (Cardura) 8 mg PO DAILY [facility] Stop: 05/17/16 08:59 Last Admin: 03/21/16 08:49 Dose: 8 mg Furosemide (Lasix) 40 mg IVP DAILY [facility] Stop: 05/17/16 08:59 Last Admin: 03/20/16 09:10 Dose: 40 mg Guaifenesin (Robitussin) 200 mg PO Q4HR PRN PRN Reason: Cough or Congestion Stop: 05/14/16 16:35 Last Admin: 03/16/16 15:43 Dose: 200 mg Heparin Sodium (Porcine) (Heparin) 5,000 units SUBQ Q12HR [facility] Stop: 05/13/16 20:59 Last Admin: 03/20/16 20:49 Dose: 5,000 units Hydromorphone HCl (Dilaudid) 1 mg IVP Q4HR PRN PRN Reason: moderate pain Stop: 05/13/16 15:32 Last Admin: 03/21/16 08:46 Dose: 1 mg Hydromorphone HCl (Dilaudid) 2 mg IVP Q4HR PRN PRN Reason: SEVERE PAIN/WOUND MANAGEMENT Stop: 05/18/16 15:11 Last Admin: 03/20/16 17:18 Dose: 2 mg Ceftriaxone Sodium 1 gm/ (Dextrose) 50 mls @ 100 mls/hr IV Q24H [facility] Stop: 05/16/16 13:59 Last Infusion: 03/20/16 17:43 Dose: Infused Metronidazole (Flagyl) 500 mg in 100 mls @ 100 mls/hr IV Q8HR [facility] Stop: 05/16/16 20:59 Last Infusion: 03/20/16 17:42 Dose: Infused Daptomycin 320 mg/ Sodium (Chloride) 100 mls @ 100 mls/hr IV Q24H [facility] Stop: 05/17/16 08:59 Last Infusion: 03/20/16 17:43 Dose: Infused Lactulose (Cephulac) 20 gm PO Q24HR PRN PRN Reason: Constipation Stop: 05/16/16 12:46 Levofloxacin (Levaquin) 250 mg PO DAILY [facility] Stop: 05/17/16 08:59 Last Admin: 03/21/16 08:50 Dose: 250 mg Lorazepam (Ativan) 1 mg PO Q6HR PRN PRN Reason: Anxiety Stop: 05/19/16 09:53 Losartan Potassium (Cozaar) 50 mg PO DAILY [facility] Stop: 05/17/16 08:59 Last Admin: 03/21/16 08:51 Dose: 50 mg Miconazole Nitrate (Micatin 2%) 1 appl TP BID [facility] Stop: 05/16/16 16:59 Miscellaneous (Vte Chemical Prophylaxis Screen/ Admission) 1 ea [facility] PRN PRN PRN Reason: PROTOCOL Stop: 05/13/16 16:44 Miscellaneous (Apixaban [Eliquis]) 5 mg PO Q2HR [facility] Stop: 05/16/16 12:59 Morphine Sulfate (Ms-Contin) 30 mg PO BID PRN PRN Reason: Pain (Severe) Stop: 05/16/16 13:31 Ondansetron HCl (Zofran Odt) 4 mg PO Q6HR PRN PRN Reason: Vomiting Stop: 05/16/16 12:46 Pantoprazole Sodium (Protonix) 40 mg PO QDAC [facility] Stop: 05/17/16 06:29 Last Admin: 03/21/16 07:00 Dose: 40 mg Potassium Chloride (Klor-Con) 20 meq PO DAILY [facility] Stop: 05/17/16 08:59 Last Admin: 03/20/16 09:30 Dose: 20 meq Sodium Phosphate (Fleet Enema) 133 ml RC DAILY PRN PRN Reason: Constipation Stop: 05/16/16 12:46 Zinc Sulfate (Zinc Sulfate) 220 mg PO DAILY [facility] Stop: 05/17/16 08:59 Last Admin: 03/21/16 08:50 Dose: 220 mg - Procedures Procedures: Procedures Procedure Code Date BYPASS DESCENDING COLON TO CUTANEOUS, OPEN APPROACH [id number] 01/12/16 COLOSTOMY 75280 01/12/16 SRINATH SUBQ TISSUE 20 SQ CM/< 74393 01/12/16 EXCISION OF LEFT ACETABULUM, OPEN APPROACH [id number] 03/14/16 EXCISION OF LEFT PELVIC BONE, OPEN APPROACH [id number] 01/12/16 EXCISION OF SACRUM, OPEN APPROACH [id number] 03/14/16 PRP I/BECCA INIT REDUC >5 YR 81835 01/12/16 REMOVAL OF PRESSURE SORE 06264 03/14/16 REPAIR BILATERAL INGUINAL REGION, OPEN APPROACH [id number] 01/12/16 Assessment/Plan - Problem List Patient Problems: All Active Problems Anemia (Acute) D64.9 Cardiomegaly (Acute) I51.7 Constipation (Acute) K59.00 H/O: CVA (cerebrovascular accident) (Acute) Z86.73 History of CHF (congestive heart failure) (Acute) Z86.79 Non-healing sacral decubitus ulcer stage (Acute) PUD (peptic ulcer disease) (Acute) K27.9 UTI (urinary tract infection) (Acute) h/o coronary artery disease (Acute) - Plan Plan: vascular/surgical /id consult
[2016-03-21] MEDS: Potassium Chloride 20 mEq ER Tab PO SCH (09:12)
[2016-03-21] MEDS: Miconazole Nitrate 2% Cream 30gm TP SCH ×2 (09:49→17:48)
[2016-03-21] MEDS: Venelex 60gm Tube TP SCH (11:27)
--- NOTE | 2016-03-21 12:29 | Infectious Disease Prog Note ---
Infectious Disease Subjective - Review of Systems Service Date: 03/21/16 Subjective: No new change. There is no fever. Infectious Disease Objective - Results Result Diagrams: 03/18/16 06:25 03/18/16 06:25 Recent Labs: Laboratory Last Values WBC 11.3 Th/cmm (4.8-10.8) H 03/18/16 06:25 RBC 4.98 Mil/cmm (3.80-5.80) 03/18/16 06:25 Hgb 10.9 gm/dL (12.6-17.4) L 03/18/16 06:25 Hct 34.7 % (39.0-49.0) L 03/18/16 06:25 MCV 69.6 fl (80-99) L 03/18/16 06:25 MCH 22.0 pg (27.0-31.0) L 03/18/16 06:25 MCHC Differential 31.6 pg (28.0-36.0) 03/18/16 06:25 RDW 20.0 % (11.5-20.0) 03/18/16 06:25 Plt Count 484 Th/cmm (150-400) H 03/18/16 06:25 MPV 7.2 fl 03/18/16 06:25 Band Neutrophils % 3 % (0-10) 03/18/16 06:25 Neutrophils (Manual) 86 % (40-80) H 03/18/16 06:25 Lymphocytes 6 % (20-50) L 03/18/16 06:25 Monocytes 4 % (2-10) 03/18/16 06:25 Eosinophils 1 % (0-5) 03/18/16 06:25 Basophils 2 % (0-3) 03/14/16 11:30 Platelet Estimate INCREASED PLATELETS (NORMAL) 03/18/16 06:25 Platelet Morphology NORMAL (NORMAL) 03/18/16 06:25 Microcytosis 3+ 03/18/16 06:25 RBC Morph Micro Appear ABNORMAL (NORMAL) 03/18/16 06:25 PT 11.6 SECONDS (9.5-11.5) H 03/18/16 06:25 INR 1.16 (0.5-1.4) 03/18/16 06:25 Sodium 141 mEq/L (136-145) 03/18/16 06:25 Potassium 3.7 mEq/L (3.5-5.1) 03/18/16 06:25 Chloride 107 mEq/L (98-107) 03/18/16 06:25 Carbon Dioxide 25.9 mEq/L (21.0-31.0) 03/18/16 06:25 Anion Gap 11.8 (7.0-16.0) 03/18/16 06:25 BUN 31 mg/dL (7-25) H 03/18/16 06:25 Creatinine 0.4 mg/dL (0.7-1.3) L 03/18/16 06:25 Est GFR ( Amer) > 60.0 ml/min 03/18/16 06:25 Est GFR (Non-Af Amer) > 60.0 ml/min 03/18/16 06:25 BUN/Creatinine Ratio 77.5 03/18/16 06:25 Glucose 134 mg/dL (70-105) H 03/18/16 06:25 Calcium 9.7 mg/dL (8.6-10.3) 03/18/16 06:25 Urine Source CATH 03/14/16 10:45 Urine Color YELLOW 03/14/16 10:45 Urine Clarity SL. CLOUDY (CLEAR) 03/14/16 10:45 Urine pH 8.5 03/14/16 10:45 Ur Specific [place] 1.015 (1.005-1.030) 03/14/16 10:45 Urine Protein 100 mg/dL (NEGATIVE) H 03/14/16 10:45 Urine Glucose (UA) NEGATIVE mg/dL (NEGATIVE) 03/14/16 10:45 Urine Ketones NEGATIVE mg/dL (NEGATIVE) 03/14/16 10:45 Urine Blood MODERATE (NEGATIVE) H 03/14/16 10:45 Urine Nitrate NEGATIVE (NEGATIVE) 03/14/16 10:45 Urine Bilirubin NEGATIVE (NEGATIVE) 03/14/16 10:45 Urine Urobilinogen 0.2 E.U./dL (0.2 - 1.0) 03/14/16 10:45 Ur Leukocyte Esterase MODERATE (NEGATIVE) H 03/14/16 10:45 Urine RBC 5-8 /hpf (0-5) 03/14/16 10:45 Urine WBC 50-100 /hpf (0-5) H 03/14/16 10:45 Ur Epithelial Cells RARE /lpf (FEW) 03/14/16 10:45 Urine Bacteria MANY /hpf (NONE SEEN) 03/14/16 10:45 - Physical Exam Vitals and I&O: Vital Signs Temp 98.7 F 03/20/16 16:00 Pulse 61 03/21/16 09:11 Resp 20 03/21/16 08:00 BP 124/78 03/21/16 09:11 Pulse Ox 97 03/21/16 07:08 Intake & Output 03/20/16 03/21/16 03/21/16 18:59 06:59 18:59 Intake Total 1800 720 800 Output Total 2140 720 1700 Balance -340 0 -900 Intake: Intake, IV Amount 250 DAPTOmycin 320 mg In 100 Sodium Chloride 0.9% 100 ml @ 100 mls/hr IV Q24H [facility] Rx#:[id number] cefTRIAXone 1 gm In 50 Dextrose 5% 50 ml @ 100 mls/hr IV Q24H [facility] Rx#: [id number] metroNIDAZOLE 500mg/NS 100 100mL 500 mg In 100 ml @ 100 mls/hr IV Q8HR [facility] Rx #:[id number] Oral 1550 720 800 Output: Urine 2050 720 1700 Stool 0 Other 90 Active Medications: Current Medications Acetaminophen (Tylenol) 650 mg PO Q6HR PRN PRN Reason: Mild Pain or Fever >101 Stop: 05/16/16 12:46 Acetaminophen/Hydrocodone Bitart ([place] 10 Mg/325 Mg) 1 tab PO Q4H PRN PRN Reason: mild pain Stop: 05/13/16 15:35 Last Admin: 03/21/16 11:25 Dose: 1 tab Acetaminophen/Hydrocodone Bitart ([place] 10 Mg/325 Mg) 1 tab PO DAILY PRN PRN Reason: Pain (Moderate) Stop: 05/16/16 12:46 Al Hydrox/Mg Hydrox/Simethicone (Maalox) 20 ml PO DAILY PRN PRN Reason: GI DISTRESS Stop: 05/16/16 12:46 Albuterol/Ipratropium (Duoneb Neb) 3 ml HHN Q4HR PRN PRN Reason: Shortness of Breath or Wheeze Stop: 05/15/16 22:04 Last Admin: 03/21/16 07:08 Dose: 3 ml Alprazolam (Xanax) 0.25 mg PO BID [facility] PRN Reason: Protocol Stop: 05/13/16 21:42 Last Admin: 03/21/16 08:50 Dose: 0.25 mg Alprazolam (Xanax) 0.25 mg PO Q24HR PRN; Protocol PRN Reason: Anxiety Stop: 05/16/16 12:46 Amiodarone HCl (Cordarone) 200 mg PO DAILY [facility] Stop: 05/17/16 08:59 Last Admin: 03/21/16 08:50 Dose: 200 mg Amlodipine Besylate (Norvasc) 5 mg PO DAILY [facility] Stop: 05/17/16 08:59 Last Admin: 03/21/16 09:11 Dose: Not Given Artificial Tears (Artificial Tears Ophth Soln) 1 drop EACH EYE BID PRN PRN Reason: DRY EYES Stop: 05/16/16 12:46 Ascorbic Acid (Vitamin C) 500 mg PO BID [facility] Stop: 05/16/16 16:59 Last Admin: 03/21/16 08:51 Dose: 500 mg Carvedilol (Coreg) 25 mg PO BID [facility] Stop: 05/16/16 16:59 Last Admin: 03/21/16 09:11 Dose: Not Given Clonidine HCl (Catapres) 0.1 mg PO Q8HR PRN PRN Reason: IN SBP>150 Stop: 05/16/16 12:46 Last Admin: 03/18/16 01:04 Dose: 0.1 mg Diphenhydramine HCl (Benadryl) 25 mg PO Q8HR PRN PRN Reason: Itching Stop: 05/16/16 12:46 Docusate Sodium (Colace) 100 mg PO BID [facility] Stop: 05/16/16 16:59 Last Admin: 03/21/16 09:10 Dose: Not Given Doxazosin Mesylate (Cardura) 8 mg PO DAILY [facility] Stop: 05/17/16 08:59 Last Admin: 03/21/16 08:49 Dose: 8 mg Furosemide (Lasix) 40 mg IVP DAILY [facility] Stop: 05/17/16 08:59 Last Admin: 03/21/16 08:58 Dose: 40 mg Guaifenesin (Robitussin) 200 mg PO Q4HR PRN PRN Reason: Cough or Congestion Stop: 05/14/16 16:35 Last Admin: 03/16/16 15:43 Dose: 200 mg Heparin Sodium (Porcine) (Heparin) 5,000 units SUBQ Q12HR [facility] Stop: 05/13/16 20:59 Last Admin: 03/21/16 09:00 Dose: 5,000 units Hydromorphone HCl (Dilaudid) 1 mg IVP Q4HR PRN PRN Reason: moderate pain Stop: 05/13/16 15:32 Last Admin: 03/21/16 08:46 Dose: 1 mg Hydromorphone HCl (Dilaudid) 2 mg IVP Q4HR PRN PRN Reason: SEVERE PAIN/WOUND MANAGEMENT Stop: 05/18/16 15:11 Last Admin: 03/20/16 17:18 Dose: 2 mg Ceftriaxone Sodium 1 gm/ (Dextrose) 50 mls @ 100 mls/hr IV Q24H [facility] Stop: 05/16/16 13:59 Last Infusion: 03/20/16 17:43 Dose: Infused Metronidazole (Flagyl) 500 mg in 100 mls @ 100 mls/hr IV Q8HR [facility] Stop: 05/16/16 20:59 Last Infusion: 03/20/16 17:42 Dose: Infused Daptomycin 320 mg/ Sodium (Chloride) 100 mls @ 100 mls/hr IV Q24H [facility] Stop: 05/17/16 08:59 Last Admin: 03/21/16 09:46 Dose: 100 mls/hr Linezolid (Zyvox) 600 mg in 300 mls @ 300 mls/hr IV Q12H [facility] Stop: 05/20/16 12:29 Lactulose (Cephulac) 20 gm PO Q24HR PRN PRN Reason: Constipation Stop: 05/16/16 12:46 Levofloxacin (Levaquin) 250 mg PO DAILY [facility] Stop: 05/17/16 08:59 Last Admin: 03/21/16 08:50 Dose: 250 mg Lorazepam (Ativan) 1 mg PO Q6HR PRN PRN Reason: Anxiety Stop: 05/19/16 09:53 Losartan Potassium (Cozaar) 50 mg PO DAILY [facility] Stop: 05/17/16 08:59 Last Admin: 03/21/16 08:51 Dose: 50 mg Miconazole Nitrate (Micatin 2%) 1 appl TP BID [facility] Stop: 05/16/16 16:59 Last Admin: 03/21/16 09:49 Dose: 1 appl Miscellaneous (Vte Chemical Prophylaxis Screen/ Admission) 1 ea [facility] PRN PRN PRN Reason: PROTOCOL Stop: 05/13/16 16:44 Miscellaneous (Apixaban [Eliquis]) 5 mg PO Q2HR [facility] Stop: 05/16/16 12:59 Morphine Sulfate (Ms-Contin) 30 mg PO BID PRN PRN Reason: Pain (Severe) Stop: 05/16/16 13:31 Ondansetron HCl (Zofran Odt) 4 mg PO Q6HR PRN PRN Reason: Vomiting Stop: 05/16/16 12:46 Pantoprazole Sodium (Protonix) 40 mg PO QDAC [facility] Stop: 05/17/16 06:29 Last Admin: 03/21/16 07:00 Dose: 40 mg Potassium Chloride (Klor-Con) 20 meq PO DAILY [facility] Stop: 05/17/16 08:59 Last Admin: 03/21/16 09:12 Dose: Not Given Sodium Phosphate (Fleet Enema) 133 ml RC DAILY PRN PRN Reason: Constipation Stop: 05/16/16 12:46 Zinc Sulfate (Zinc Sulfate) 220 mg PO DAILY [facility] Stop: 05/17/16 08:59 Last Admin: 03/21/16 08:50 Dose: 220 mg General: no acute distress, well developed, well nourished HEENT: atraumatic, normocephalic Neck: supple Cardiovascular: S1S2, regular Lungs: clear to auscultation bilaterally, clear to percussion Abdomen: soft, no tender, no distended Extremities: no cyanosis, no clubbing, no edema Neurological: awake, alert Skin: other (sacral wound stage 4.) - Procedures Procedures: Procedures Procedure Code Date BYPASS DESCENDING COLON TO CUTANEOUS, OPEN APPROACH [id number] 01/12/16 COLOSTOMY 42779 01/12/16 SRINATH SUBQ TISSUE 20 SQ CM/< 13680 01/12/16 EXCISION OF LEFT ACETABULUM, OPEN APPROACH [id number] 03/14/16 EXCISION OF LEFT PELVIC BONE, OPEN APPROACH [id number] 01/12/16 EXCISION OF SACRUM, OPEN APPROACH [id number] 03/14/16 PRP I/BECCA INIT REDUC >5 YR 09667 01/12/16 REMOVAL OF PRESSURE SORE 39180 03/14/16 REPAIR BILATERAL INGUINAL REGION, OPEN APPROACH [id number] 01/12/16 Infectious Disease Assmt/Plan - Problem List Patient Problems: All Active Problems Anemia (Acute) D64.9 Cardiomegaly (Acute) I51.7 Constipation (Acute) K59.00 H/O: CVA (cerebrovascular accident) (Acute) Z86.73 History of CHF (congestive heart failure) (Acute) Z86.79 Non-healing sacral decubitus ulcer stage (Acute) PUD (peptic ulcer disease) (Acute) K27.9 UTI (urinary tract infection) (Acute) h/o coronary artery disease (Acute) - Assessment Assessment: Impression: 1. sacral osteomyelitis, infected wound was deep to the bone , refer to op note) . 2. UTI. 3. Leukocytosis - improving. 4. CVA. 5. Paraplegia. - Plan Plan: will change daptomycin to zyvox for around 5 weeks from now. continue rocephin, JAVID Levaquin Continue the same treatment.
[2016-03-21] MEDS: HYDROmorphone 2 mg/mL 1mL Vial IVP PRN ×2 (13:16→17:49)
[2016-03-21] MEDS: metroNIDAZOLE 500mg/NS 100mL 500 MG/100 ML BAG IV SCH (13:17)
--- NOTE | 2016-03-21 13:53 | Pathology Report ---
[id number] Collection date: 03/19/2016 Surgeon: Dr. Yoav Rodriguez Specimen Description: Necrotic tissue, left hip and sacral area. Gross Description: Received in formalin are multiple thin strips of necrotic-appearing dudley-palma and soft tissue ranging from 0.5 to 1.8 cm in greatest dimension. Sectioning shows ulcerated and necrotic skin as well as soft tissue. [employer] Inspector sections are submitted in one cassette. Microscopic Description: The histologic sections show ulcerated and necrotic skin and soft tissue with areas of suppurative inflammation consisting of large collections of neutrophils with a necrotic background. Diagnosis: Ulcerated necrotic skin and soft tissue consistent with debridement. [facility]# [id number] [facility]
[2016-03-21] MEDS: Linezolid 600mg/300mL 600 MG/300 ML BAG IV SCH (14:24)
--- NOTE | 2016-03-21 15:13 | General Progress Note ---
Subjective - Review of Systems Service Date: 03/21/16 Subjective: awake, alert, still c/o back pain Objective - Results Result Diagrams: 03/18/16 06:25 03/18/16 06:25 Recent Labs: Laboratory Last Values WBC 11.3 Th/cmm (4.8-10.8) H 03/18/16 06:25 RBC 4.98 Mil/cmm (3.80-5.80) 03/18/16 06:25 Hgb 10.9 gm/dL (12.6-17.4) L 03/18/16 06:25 Hct 34.7 % (39.0-49.0) L 03/18/16 06:25 MCV 69.6 fl (80-99) L 03/18/16 06:25 MCH 22.0 pg (27.0-31.0) L 03/18/16 06:25 MCHC Differential 31.6 pg (28.0-36.0) 03/18/16 06:25 RDW 20.0 % (11.5-20.0) 03/18/16 06:25 Plt Count 484 Th/cmm (150-400) H 03/18/16 06:25 MPV 7.2 fl 03/18/16 06:25 Band Neutrophils % 3 % (0-10) 03/18/16 06:25 Neutrophils (Manual) 86 % (40-80) H 03/18/16 06:25 Lymphocytes 6 % (20-50) L 03/18/16 06:25 Monocytes 4 % (2-10) 03/18/16 06:25 Eosinophils 1 % (0-5) 03/18/16 06:25 Basophils 2 % (0-3) 03/14/16 11:30 Platelet Estimate INCREASED PLATELETS (NORMAL) 03/18/16 06:25 Platelet Morphology NORMAL (NORMAL) 03/18/16 06:25 Microcytosis 3+ 03/18/16 06:25 RBC Morph Micro Appear ABNORMAL (NORMAL) 03/18/16 06:25 PT 11.6 SECONDS (9.5-11.5) H 03/18/16 06:25 INR 1.16 (0.5-1.4) 03/18/16 06:25 Sodium 141 mEq/L (136-145) 03/18/16 06:25 Potassium 3.7 mEq/L (3.5-5.1) 03/18/16 06:25 Chloride 107 mEq/L (98-107) 03/18/16 06:25 Carbon Dioxide 25.9 mEq/L (21.0-31.0) 03/18/16 06:25 Anion Gap 11.8 (7.0-16.0) 03/18/16 06:25 BUN 31 mg/dL (7-25) H 03/18/16 06:25 Creatinine 0.4 mg/dL (0.7-1.3) L 03/18/16 06:25 Est GFR ( Amer) > 60.0 ml/min 03/18/16 06:25 Est GFR (Non-Af Amer) > 60.0 ml/min 03/18/16 06:25 BUN/Creatinine Ratio 77.5 03/18/16 06:25 Glucose 134 mg/dL (70-105) H 03/18/16 06:25 Calcium 9.7 mg/dL (8.6-10.3) 03/18/16 06:25 Urine Source CATH 03/14/16 10:45 Urine Color YELLOW 03/14/16 10:45 Urine Clarity SL. CLOUDY (CLEAR) 03/14/16 10:45 Urine pH 8.5 03/14/16 10:45 Ur Specific [place] 1.015 (1.005-1.030) 03/14/16 10:45 Urine Protein 100 mg/dL (NEGATIVE) H 03/14/16 10:45 Urine Glucose (UA) NEGATIVE mg/dL (NEGATIVE) 03/14/16 10:45 Urine Ketones NEGATIVE mg/dL (NEGATIVE) 03/14/16 10:45 Urine Blood MODERATE (NEGATIVE) H 03/14/16 10:45 Urine Nitrate NEGATIVE (NEGATIVE) 03/14/16 10:45 Urine Bilirubin NEGATIVE (NEGATIVE) 03/14/16 10:45 Urine Urobilinogen 0.2 E.U./dL (0.2 - 1.0) 03/14/16 10:45 Ur Leukocyte Esterase MODERATE (NEGATIVE) H 03/14/16 10:45 Urine RBC 5-8 /hpf (0-5) 03/14/16 10:45 Urine WBC 50-100 /hpf (0-5) H 03/14/16 10:45 Ur Epithelial Cells RARE /lpf (FEW) 03/14/16 10:45 Urine Bacteria MANY /hpf (NONE SEEN) 03/14/16 10:45 - Physical Exam Vitals and I&O: Vital Signs Temp 98.7 F 03/20/16 16:00 Pulse 61 03/21/16 09:11 Resp 20 03/21/16 08:00 BP 124/78 03/21/16 09:11 Pulse Ox 97 03/21/16 07:08 Intake & Output 03/20/16 03/21/16 03/21/16 18:59 06:59 18:59 Intake Total 5036 423 0974 Output Total 2140 720 1700 Balance -340 0 -700 Intake: Intake, IV Amount 250 200 DAPTOmycin 320 mg In 100 Sodium Chloride 0.9% 100 ml @ 100 mls/hr IV Q24H [facility] Rx#:[id number] cefTRIAXone 1 gm In 50 Dextrose 5% 50 ml @ 100 mls/hr IV Q24H [facility] Rx#: [id number] metroNIDAZOLE 500mg/NS 100 100 100mL 500 mg In 100 ml @ 100 mls/hr IV Q8HR [facility] Rx #:[id number] Oral 1550 720 800 Output: Urine 2050 720 1700 Stool 0 Other 90 Active Medications: Current Medications Acetaminophen (Tylenol) 650 mg PO Q6HR PRN PRN Reason: Mild Pain or Fever >101 Stop: 05/16/16 12:46 Acetaminophen/Hydrocodone Bitart ([place] 10 Mg/325 Mg) 1 tab PO Q4H PRN PRN Reason: mild pain Stop: 05/13/16 15:35 Last Admin: 03/21/16 11:25 Dose: 1 tab Acetaminophen/Hydrocodone Bitart ([place] 10 Mg/325 Mg) 1 tab PO DAILY PRN PRN Reason: Pain (Moderate) Stop: 05/16/16 12:46 Al Hydrox/Mg Hydrox/Simethicone (Maalox) 20 ml PO DAILY PRN PRN Reason: GI DISTRESS Stop: 05/16/16 12:46 Albuterol/Ipratropium (Duoneb Neb) 3 ml HHN Q4HR PRN PRN Reason: Shortness of Breath or Wheeze Stop: 05/15/16 22:04 Last Admin: 03/21/16 07:08 Dose: 3 ml Alprazolam (Xanax) 0.25 mg PO BID [facility] PRN Reason: Protocol Stop: 05/13/16 21:42 Last Admin: 03/21/16 08:50 Dose: 0.25 mg Alprazolam (Xanax) 0.25 mg PO Q24HR PRN; Protocol PRN Reason: Anxiety Stop: 05/16/16 12:46 Amiodarone HCl (Cordarone) 200 mg PO DAILY [facility] Stop: 05/17/16 08:59 Last Admin: 03/21/16 08:50 Dose: 200 mg Amlodipine Besylate (Norvasc) 5 mg PO DAILY [facility] Stop: 05/17/16 08:59 Last Admin: 03/21/16 09:11 Dose: Not Given Artificial Tears (Artificial Tears Ophth Soln) 1 drop EACH EYE BID PRN PRN Reason: DRY EYES Stop: 05/16/16 12:46 Ascorbic Acid (Vitamin C) 500 mg PO BID [facility] Stop: 05/16/16 16:59 Last Admin: 03/21/16 08:51 Dose: 500 mg Carvedilol (Coreg) 25 mg PO BID [facility] Stop: 05/16/16 16:59 Last Admin: 03/21/16 09:11 Dose: Not Given Clonidine HCl (Catapres) 0.1 mg PO Q8HR PRN PRN Reason: IN SBP>150 Stop: 05/16/16 12:46 Last Admin: 03/18/16 01:04 Dose: 0.1 mg Diphenhydramine HCl (Benadryl) 25 mg PO Q8HR PRN PRN Reason: Itching Stop: 05/16/16 12:46 Docusate Sodium (Colace) 100 mg PO BID [facility] Stop: 05/16/16 16:59 Last Admin: 03/21/16 09:10 Dose: Not Given Doxazosin Mesylate (Cardura) 8 mg PO DAILY [facility] Stop: 05/17/16 08:59 Last Admin: 03/21/16 08:49 Dose: 8 mg Furosemide (Lasix) 40 mg IVP DAILY [facility] Stop: 05/17/16 08:59 Last Admin: 03/21/16 08:58 Dose: 40 mg Guaifenesin (Robitussin) 200 mg PO Q4HR PRN PRN Reason: Cough or Congestion Stop: 05/14/16 16:35 Last Admin: 03/16/16 15:43 Dose: 200 mg Heparin Sodium (Porcine) (Heparin) 5,000 units SUBQ Q12HR [facility] Stop: 05/13/16 20:59 Last Admin: 03/21/16 09:00 Dose: 5,000 units Hydromorphone HCl (Dilaudid) 1 mg IVP Q4HR PRN PRN Reason: moderate pain Stop: 05/13/16 15:32 Last Admin: 03/21/16 08:46 Dose: 1 mg Hydromorphone HCl (Dilaudid) 2 mg IVP Q4HR PRN PRN Reason: SEVERE PAIN/WOUND MANAGEMENT Stop: 05/18/16 15:11 Last Admin: 03/21/16 13:16 Dose: 2 mg Ceftriaxone Sodium 1 gm/ (Dextrose) 50 mls @ 100 mls/hr IV Q24H [facility] Stop: 05/16/16 13:59 Last Infusion: 03/20/16 17:43 Dose: Infused Metronidazole (Flagyl) 500 mg in 100 mls @ 100 mls/hr IV Q8HR [facility] Stop: 05/16/16 20:59 Last Infusion: 03/21/16 14:31 Dose: Infused Linezolid (Zyvox) 600 mg in 300 mls @ 300 mls/hr IV Q12H [facility] Stop: 05/20/16 12:29 Last Admin: 03/21/16 14:24 Dose: 300 mls/hr Lactulose (Cephulac) 20 gm PO Q24HR PRN PRN Reason: Constipation Stop: 05/16/16 12:46 Lorazepam (Ativan) 1 mg PO Q6HR PRN PRN Reason: Anxiety Stop: 05/19/16 09:53 Losartan Potassium (Cozaar) 50 mg PO DAILY [facility] Stop: 05/17/16 08:59 Last Admin: 03/21/16 08:51 Dose: 50 mg Miconazole Nitrate (Micatin 2%) 1 appl TP BID [facility] Stop: 05/16/16 16:59 Last Admin: 03/21/16 09:49 Dose: 1 appl Miscellaneous (Vte Chemical Prophylaxis Screen/ Admission) 1 ea [facility] PRN PRN PRN Reason: PROTOCOL Stop: 05/13/16 16:44 Miscellaneous (Apixaban [Eliquis]) 5 mg PO Q2HR [facility] Stop: 05/16/16 12:59 Morphine Sulfate (Ms-Contin) 30 mg PO BID PRN PRN Reason: Pain (Severe) Stop: 05/16/16 13:31 Ondansetron HCl (Zofran Odt) 4 mg PO Q6HR PRN PRN Reason: Vomiting Stop: 05/16/16 12:46 Pantoprazole Sodium (Protonix) 40 mg PO QDAC [facility] Stop: 05/17/16 06:29 Last Admin: 03/21/16 07:00 Dose: 40 mg Potassium Chloride (Klor-Con) 20 meq PO DAILY [facility] Stop: 05/17/16 08:59 Last Admin: 03/21/16 09:12 Dose: Not Given Sodium Phosphate (Fleet Enema) 133 ml RC DAILY PRN PRN Reason: Constipation Stop: 05/16/16 12:46 Zinc Sulfate (Zinc Sulfate) 220 mg PO DAILY [facility] Stop: 05/17/16 08:59 Last Admin: 03/21/16 08:50 Dose: 220 mg General: Alert, Cooperative HEENT: Atraumatic Neck: Supple Cardiovascular: Regular rate, Normal S1, Normal S2 Lungs: Clear to auscultation Abdomen: Bowel sounds - Procedures Procedures: Procedures Procedure Code Date BYPASS DESCENDING COLON TO CUTANEOUS, OPEN APPROACH [id number] 01/12/16 COLOSTOMY 94251 01/12/16 SRINATH SUBQ TISSUE 20 SQ CM/< 60164 01/12/16 EXCISION OF LEFT ACETABULUM, OPEN APPROACH [id number] 03/14/16 EXCISION OF LEFT PELVIC BONE, OPEN APPROACH [id number] 01/12/16 EXCISION OF SACRUM, OPEN APPROACH [id number] 03/14/16 PRP I/BECCA INIT REDUC >5 YR 61288 01/12/16 REMOVAL OF PRESSURE SORE 58588 03/14/16 REPAIR BILATERAL INGUINAL REGION, OPEN APPROACH [id number] 01/12/16 Assessment/Plan - Problem List Patient Problems: All Active Problems Anemia (Acute) D64.9 Cardiomegaly (Acute) I51.7 Constipation (Acute) K59.00 H/O: CVA (cerebrovascular accident) (Acute) Z86.73 History of CHF (congestive heart failure) (Acute) Z86.79 Non-healing sacral decubitus ulcer stage (Acute) PUD (peptic ulcer disease) (Acute) K27.9 UTI (urinary tract infection) (Acute) h/o coronary artery disease (Acute) - Plan Plan: appreciate consult reccomendations pain mgmt cbc.bmp in am
[2016-03-21] MEDS ORDERED: Non-Formulary Item 1 EA (Apixaban [Eliquis] 5 MG) PO SCH (21:00)
[2016-03-22] MEDS: Linezolid 600mg/300mL 600 MG/300 ML BAG IV SCH ×2 (01:00→17:17)
[2016-03-22] MEDS ORDERED: Hydrocodone/APAP 10 mg/325 mg Tab ONE (01:40)
[2016-03-22] MEDS: Hydrocodone/APAP 10 mg/325 mg Tab PO PRN ×3 (01:43→17:21)
[2016-03-22] MEDS ORDERED: HYDROmorphone 2 mg/mL 1mL Vial ONE (04:55)
[2016-03-22] MEDS: HYDROmorphone 2 mg/mL 1mL Vial IVP PRN (04:58)
--- NOTE | 2016-03-22 10:05 | General Progress Note ---
Subjective - Review of Systems Subjective: awake, alert, still c/o back pain Objective - Results Result Diagrams: 03/18/16 06:25 03/18/16 06:25 Recent Labs: Laboratory Last Values WBC 11.3 Th/cmm (4.8-10.8) H 03/18/16 06:25 RBC 4.98 Mil/cmm (3.80-5.80) 03/18/16 06:25 Hgb 10.9 gm/dL (12.6-17.4) L 03/18/16 06:25 Hct 34.7 % (39.0-49.0) L 03/18/16 06:25 MCV 69.6 fl (80-99) L 03/18/16 06:25 MCH 22.0 pg (27.0-31.0) L 03/18/16 06:25 MCHC Differential 31.6 pg (28.0-36.0) 03/18/16 06:25 RDW 20.0 % (11.5-20.0) 03/18/16 06:25 Plt Count 484 Th/cmm (150-400) H 03/18/16 06:25 MPV 7.2 fl 03/18/16 06:25 Band Neutrophils % 3 % (0-10) 03/18/16 06:25 Neutrophils (Manual) 86 % (40-80) H 03/18/16 06:25 Lymphocytes 6 % (20-50) L 03/18/16 06:25 Monocytes 4 % (2-10) 03/18/16 06:25 Eosinophils 1 % (0-5) 03/18/16 06:25 Basophils 2 % (0-3) 03/14/16 11:30 Platelet Estimate INCREASED PLATELETS (NORMAL) 03/18/16 06:25 Platelet Morphology NORMAL (NORMAL) 03/18/16 06:25 Microcytosis 3+ 03/18/16 06:25 RBC Morph Micro Appear ABNORMAL (NORMAL) 03/18/16 06:25 PT 11.6 SECONDS (9.5-11.5) H 03/18/16 06:25 INR 1.16 (0.5-1.4) 03/18/16 06:25 Sodium 141 mEq/L (136-145) 03/18/16 06:25 Potassium 3.7 mEq/L (3.5-5.1) 03/18/16 06:25 Chloride 107 mEq/L (98-107) 03/18/16 06:25 Carbon Dioxide 25.9 mEq/L (21.0-31.0) 03/18/16 06:25 Anion Gap 11.8 (7.0-16.0) 03/18/16 06:25 BUN 31 mg/dL (7-25) H 03/18/16 06:25 Creatinine 0.4 mg/dL (0.7-1.3) L 03/18/16 06:25 Est GFR ( Amer) > 60.0 ml/min 03/18/16 06:25 Est GFR (Non-Af Amer) > 60.0 ml/min 03/18/16 06:25 BUN/Creatinine Ratio 77.5 03/18/16 06:25 Glucose 134 mg/dL (70-105) H 03/18/16 06:25 Calcium 9.7 mg/dL (8.6-10.3) 03/18/16 06:25 Urine Source CATH 03/14/16 10:45 Urine Color YELLOW 03/14/16 10:45 Urine Clarity SL. CLOUDY (CLEAR) 03/14/16 10:45 Urine pH 8.5 03/14/16 10:45 Ur Specific [place] 1.015 (1.005-1.030) 03/14/16 10:45 Urine Protein 100 mg/dL (NEGATIVE) H 03/14/16 10:45 Urine Glucose (UA) NEGATIVE mg/dL (NEGATIVE) 03/14/16 10:45 Urine Ketones NEGATIVE mg/dL (NEGATIVE) 03/14/16 10:45 Urine Blood MODERATE (NEGATIVE) H 03/14/16 10:45 Urine Nitrate NEGATIVE (NEGATIVE) 03/14/16 10:45 Urine Bilirubin NEGATIVE (NEGATIVE) 03/14/16 10:45 Urine Urobilinogen 0.2 E.U./dL (0.2 - 1.0) 03/14/16 10:45 Ur Leukocyte Esterase MODERATE (NEGATIVE) H 03/14/16 10:45 Urine RBC 5-8 /hpf (0-5) 03/14/16 10:45 Urine WBC 50-100 /hpf (0-5) H 03/14/16 10:45 Ur Epithelial Cells RARE /lpf (FEW) 03/14/16 10:45 Urine Bacteria MANY /hpf (NONE SEEN) 03/14/16 10:45 - Physical Exam Vitals and I&O: Vital Signs Temp 98 F 03/21/16 20:00 Pulse 66 03/22/16 04:00 Resp 18 03/22/16 04:00 BP 137/84 03/22/16 04:00 Pulse Ox 95 03/22/16 04:00 Intake & Output 03/21/16 03/22/16 03/22/16 18:59 06:59 18:59 Intake Total 2850 350 Output Total 3730 Balance -880 350 Intake: Intake, IV Amount 200 350 Linezolid 600mg/300mL 600 300 mg In 300 ml @ 300 mls/ hr IV Q12H [facility] Rx#: [id number] cefTRIAXone 1 gm In 50 Dextrose 5% 50 ml @ 100 mls/hr IV Q24H [facility] Rx#: [id number] metroNIDAZOLE 500mg/NS 100 100mL 500 mg In 100 ml @ 100 mls/hr IV Q8HR [facility] Rx #:[id number] Oral 2650 Output: Urine 3700 Other 30 Active Medications: Current Medications Acetaminophen (Tylenol) 650 mg PO Q6HR PRN PRN Reason: Mild Pain or Fever >101 Stop: 05/16/16 12:46 Acetaminophen/Hydrocodone Bitart ([place] 10 Mg/325 Mg) 1 tab PO Q4H PRN PRN Reason: mild pain Stop: 05/13/16 15:35 Last Admin: 03/22/16 01:43 Dose: 1 tab Acetaminophen/Hydrocodone Bitart ([place] 10 Mg/325 Mg) 1 tab PO DAILY PRN PRN Reason: Pain (Moderate) Stop: 05/16/16 12:46 Al Hydrox/Mg Hydrox/Simethicone (Maalox) 20 ml PO DAILY PRN PRN Reason: GI DISTRESS Stop: 05/16/16 12:46 Albuterol/Ipratropium (Duoneb Neb) 3 ml HHN Q4HR PRN PRN Reason: Shortness of Breath or Wheeze Stop: 05/15/16 22:04 Last Admin: 03/21/16 07:08 Dose: 3 ml Alprazolam (Xanax) 0.25 mg PO BID [facility] PRN Reason: Protocol Stop: 05/13/16 21:42 Last Admin: 03/21/16 17:48 Dose: 0.25 mg Alprazolam (Xanax) 0.25 mg PO Q24HR PRN; Protocol PRN Reason: Anxiety Stop: 05/16/16 12:46 Amiodarone HCl (Cordarone) 200 mg PO DAILY [facility] Stop: 05/17/16 08:59 Last Admin: 03/21/16 08:50 Dose: 200 mg Amlodipine Besylate (Norvasc) 5 mg PO DAILY [facility] Stop: 05/17/16 08:59 Last Admin: 03/21/16 09:11 Dose: Not Given Artificial Tears (Artificial Tears Ophth Soln) 1 drop EACH EYE BID PRN PRN Reason: DRY EYES Stop: 05/16/16 12:46 Ascorbic Acid (Vitamin C) 500 mg PO BID [facility] Stop: 05/16/16 16:59 Last Admin: 03/21/16 17:48 Dose: 500 mg Carvedilol (Coreg) 25 mg PO BID [facility] Stop: 05/16/16 16:59 Last Admin: 03/21/16 17:50 Dose: Not Given Clonidine HCl (Catapres) 0.1 mg PO Q8HR PRN PRN Reason: SBP>150 Stop: 05/16/16 12:46 Last Admin: 03/18/16 01:04 Dose: 0.1 mg Diphenhydramine HCl (Benadryl) 25 mg PO Q8HR PRN PRN Reason: Itching Stop: 05/16/16 12:46 Docusate Sodium (Colace) 100 mg PO BID [facility] Stop: 05/16/16 16:59 Last Admin: 03/21/16 18:54 Dose: Not Given Doxazosin Mesylate (Cardura) 8 mg PO DAILY [facility] Stop: 05/17/16 08:59 Last Admin: 03/21/16 08:49 Dose: 8 mg Furosemide (Lasix) 40 mg IVP DAILY [facility] Stop: 05/17/16 08:59 Last Admin: 03/21/16 08:58 Dose: 40 mg Guaifenesin (Robitussin) 200 mg PO Q4HR PRN PRN Reason: Cough or Congestion Stop: 05/14/16 16:35 Last Admin: 03/16/16 15:43 Dose: 200 mg Heparin Sodium (Porcine) (Heparin) 5,000 units SUBQ Q12HR [facility] Stop: 05/13/16 20:59 Last Admin: 03/21/16 22:00 Dose: Not Given Hydromorphone HCl (Dilaudid) 1 mg IVP Q4HR PRN PRN Reason: moderate pain Stop: 05/13/16 15:32 Last Admin: 03/21/16 08:46 Dose: 1 mg Hydromorphone HCl (Dilaudid) 2 mg IVP Q4HR PRN PRN Reason: SEVERE PAIN/WOUND MANAGEMENT Stop: 05/18/16 15:11 Last Admin: 03/22/16 04:58 Dose: 2 mg Ceftriaxone Sodium 1 gm/ (Dextrose) 50 mls @ 100 mls/hr IV Q24H [facility] Stop: 05/16/16 13:59 Last Infusion: 03/21/16 20:10 Dose: Infused Metronidazole (Flagyl) 500 mg in 100 mls @ 100 mls/hr IV Q8HR [facility] Stop: 05/16/16 20:59 Last Infusion: 03/21/16 14:31 Dose: Infused Linezolid (Zyvox) 600 mg in 300 mls @ 300 mls/hr IV Q12H [facility] Stop: 05/20/16 12:29 Last Admin: 03/22/16 01:00 Dose: 300 mls/hr Lactulose (Cephulac) 20 gm PO Q24HR PRN PRN Reason: Constipation Stop: 05/16/16 12:46 Lorazepam (Ativan) 1 mg PO Q6HR PRN PRN Reason: Anxiety Stop: 05/19/16 09:53 Losartan Potassium (Cozaar) 50 mg PO DAILY [facility] Stop: 05/17/16 08:59 Last Admin: 03/21/16 08:51 Dose: 50 mg Miconazole Nitrate (Micatin 2%) 1 appl TP BID [facility] Stop: 05/16/16 16:59 Last Admin: 03/21/16 17:48 Dose: 1 appl Miscellaneous (Vte Chemical Prophylaxis Screen/ Admission) 1 ea [facility] PRN PRN PRN Reason: PROTOCOL Stop: 05/13/16 16:44 Miscellaneous (Apixaban [Eliquis]) 5 mg PO Q2HR [facility] Stop: 05/16/16 12:59 Morphine Sulfate (Ms-Contin) 30 mg PO BID PRN PRN Reason: Pain (Severe) Stop: 05/16/16 13:31 Ondansetron HCl (Zofran Odt) 4 mg PO Q6HR PRN PRN Reason: Vomiting Stop: 05/16/16 12:46 Pantoprazole Sodium (Protonix) 40 mg PO QDAC [facility] Stop: 05/17/16 06:29 Last Admin: 03/21/16 07:00 Dose: 40 mg Potassium Chloride (Klor-Con) 20 meq PO DAILY [facility] Stop: 05/17/16 08:59 Last Admin: 03/21/16 09:12 Dose: Not Given Sodium Phosphate (Fleet Enema) 133 ml RC DAILY PRN PRN Reason: Constipation Stop: 05/16/16 12:46 Zinc Sulfate (Zinc Sulfate) 220 mg PO DAILY [facility] Stop: 05/17/16 08:59 Last Admin: 03/21/16 08:50 Dose: 220 mg - Procedures Procedures: Procedures Procedure Code Date BYPASS DESCENDING COLON TO CUTANEOUS, OPEN APPROACH [id number] 01/12/16 COLOSTOMY 86517 01/12/16 SRINATH SUBQ TISSUE 20 SQ CM/< 23874 01/12/16 EXCISION OF LEFT ACETABULUM, OPEN APPROACH [id number] 03/14/16 EXCISION OF LEFT PELVIC BONE, OPEN APPROACH [id number] 01/12/16 EXCISION OF SACRUM, OPEN APPROACH [id number] 03/14/16 PRP I/BECCA INIT REDUC >5 YR 96349 01/12/16 REMOVAL OF PRESSURE SORE 42681 03/14/16 REPAIR BILATERAL INGUINAL REGION, OPEN APPROACH [id number] 01/12/16 Assessment/Plan - Problem List Patient Problems: All Active Problems Anemia (Acute) D64.9 Cardiomegaly (Acute) I51.7 Constipation (Acute) K59.00 H/O: CVA (cerebrovascular accident) (Acute) Z86.73 History of CHF (congestive heart failure) (Acute) Z86.79 Non-healing sacral decubitus ulcer stage (Acute) PUD (peptic ulcer disease) (Acute) K27.9 UTI (urinary tract infection) (Acute) h/o coronary artery disease (Acute) - Plan Plan: appreciate consult reccomendations pain mgmt cbc.bmp in am
[2016-03-22] MEDS: HYDROmorphone 1 mg/mL 1mL Syr IVP PRN ×3 (10:12→19:43)
[2016-03-22] MEDS: Potassium Chloride 20 mEq ER Tab PO SCH (10:22)
[2016-03-22] MEDS: Multivitamin w/ Minerals Tab PO SCH (10:22)
[2016-03-22] MEDS: Pantoprazole 40 mg EC Tab PO SCH ×2 (10:30→10:31)
[2016-03-22] MEDS: Venelex 60gm Tube TP SCH (17:23)
[2016-03-22] MEDS: Miconazole Nitrate 2% Cream 30gm TP SCH (17:23)
--- NOTE | 2016-04-02 00:01 | Discharge Summary ---
This is a patient with multiple problems. The initial diagnosis is stage IV decubiti infected, with wound VAC with bilateral leg ulcers, history of leukocytosis, CHF, history of CVA, history of functional quadriparesis and peptic ulcer disease. The patient was treated with IV antibiotics and wound care. The patient improved, but still the wound care needed to be continued. IV antibiotics needed to be continued. Dr. Anil Galvan felt that the patient should go to [place] for further care. On 03/22/2016, the patient was sent to [facility] where I will be following the patient. CONDITION AT THE TIME OF DISCHARGE: Stable. MEDICATIONS: See the reconciliation sheet. JOB# [id number]
== END 2016-03-22 19:55 | DRG 853 ==
LOC: ER 09:52 → MSI 13:30 → UNDODISIN 03-21 20:55
PROVIDERS: ADMIT Internal Medicine; ATTEND Internal Medicine
PROC: 0QB10ZZ Excision of Sacrum, Open Approach (ICD-10-PCS; principal; 2016-03-19)
PROC: 0QB50ZZ Excision of Left Acetabulum, Open Approach (ICD-10-PCS; 2016-03-19)
DX: A41.9 Sepsis, unspecified organism (principal); L89.154 Pressure ulcer of sacral region, stage 4; L89.224 Pressure ulcer of left hip, stage 4; R53.2 Functional quadriplegia; Z93.0 Tracheostomy status; I50.30 Unspecified diastolic (congestive) heart failure; N39.0 Urinary tract infection, site not specified; D64.9 Anemia, unspecified; I69.30 Unspecified sequelae of cerebral infarction; B95.62 Methicillin resistant Staphylococcus aureus infection as the cause of diseases classified elsewhere; K27.9 Peptic ulcer, site unspecified, unspecified as acute or chronic, without hemorrhage or perforation; I51.7 Cardiomegaly; K21.9 Gastro-esophageal reflux disease without esophagitis; G89.4 Chronic pain syndrome; I73.9 Peripheral vascular disease, unspecified; I25.119 Atherosclerotic heart disease of native coronary artery with unspecified angina pectoris; K59.00 Constipation, unspecified; Z93.3 Colostomy status; Z88.8 Allergy status to other drugs, medicaments and biological substances; Z91.02 Food additives allergy status; Z82.49 Family history of ischemic heart disease and other diseases of the circulatory system; Z93.1 Gastrostomy status; Z98.890 Other specified postprocedural states
CPT/HCPCS: 36415-UA; 71010-TC; 78315-TC; 80048-TC; 81001-TC; 85007-TC; 85027-TC; 85610-TC; 87070-90; 87086-90; 88304-TC; 90799; 93005; 94640; 94760; A9503; J0696; J0878; J1170; J1644; J1940; J2020; J2250; J3370; X5790; X6026; X6206; X7704; Z7610